=== PATIENT | female | born 1945 | race Caucasian/White ===

== ENCOUNTER 2016-12-18 09:27 | Emergency (ER) | payer OTHER ==
[2016-12-18 09:41] VITALS: BP 124/66; PULSE 77; RESP 20; TEMP 98; O2SAT 97
--- NOTE | 2016-12-18 10:25 | UCPHY ---
H & P Time Seen by Provider: 12/18/16 09:44 Patient Type: Established HPI/ROS: This patient sustained a laceration to her left 3rd finger from a table with leaves that pinched together causing the injury yesterday evening. She reports moderate pain and moderate bleeding. She placed a dressing on the at home after cleaning the wound and came in today for further evaluation. Today she reports mild pain to the affected area. ROS: No numbness or tingling. No difficulty moving the affected finger. No other injuries. No bony pain. 5 point ROS is otherwise negative. Past Medical/Surgical History: Immunizations are up to date Smoking Status: Never smoked Physical Exam: Physical Exam Vital signs are normal. General: Pleasant 71-year-old female No acute distress Lungs: No respiratory distress. Cardiac: Brisk capillary refill is intact throughout. Skin: No rash or pallor. The patient has a 1 cm full-thickness laceration to the distal phalanx of the left 3rd finger with no active bleeding. Subcutaneous tissues evident but no deeper structures are injured. There are no foreign bodies present on direct examination. Neuro: Alert and oriented x3 with no sensorimotor deficits. Constitutional: Initial Vital Signs Temperature (C) 36.6 C 12/18/16 09:39 Heart Rate 77 12/18/16 09:39 Respiratory Rate 20 12/18/16 09:39 Blood Pressure 124/66 H 12/18/16 09:39 O2 Sat (%) 97 12/18/16 09:39 O2 Delivery Mode Room Air Allergies/Adverse Reactions: strawberry [Lantry] Allergy (Severe, Verified 09/02/13 11:18) Anaphylaxis amoxicillin [Amoxicillin] Allergy (Intermediate, Verified 09/02/13 11:18) Hives naproxen sodium [From Aleve] Allergy (Intermediate, Verified 09/02/13 11:18) Hives Penicillins Allergy (Intermediate, Verified 09/02/13 11:18) Hives Home Medications: Medication Instructions Recorded Pregabalin [Lyrica] 100 mg PO 02/21/12 celeCOXIB [Celebrex (RX)] 200 mg PO 02/21/12 Ranitidine HCl [Zantac 75] BID 10/17/15 MDM/Departure - MDM Procedures: Digital block: After verbal consent and cleaning the base the finger with chlorhexidine under sterile conditions using a 27 gauge needle and a 50 50 mix of 0.5% Marcaine and 2% plain lidocaine I injected 8 mL with 3 injections with good effect. There were no complications. The wound is 1 cm. The wound was copiously irrigated with saline. The wound was explored for foreign bodies and none were found. The wound was prepped and draped in the normal sterile fashion. The edges were reapproximated using 4 0 Ethilon-3 running sutures with good hemostasis and cosmesis. The patient tolerated the procedure well. There were no complications. - Depart Disposition: Home, Routine, Self-Care Clinical Impression: Finger laceration Qualifiers: Encounter type: initial encounter Qualifier Code: (S61.219A) Laceration without foreign body of unspecified finger without damage to nail, initial encounter Instructions: Finger Laceration (ED) Additional Instructions: Diagnosis: Finger laceration Plan: Keep the wound clean and dry for the next 2 days. Then clean it with warm soapy water daily. Return for suture removal in 10-12 days Return sooner for redness discharge or other concerns for infection. Referrals: Terese Friend MD [Primary Care Provider] - As per Instructions - PQRS PQRS Measurement: 134: Depression screening and followup, PRIME MD-PHQ2 (12 years and older) Over the last 2 weeks, how often have you been bothered by any of the following problems? 1. Feeling down, depressed, or hopeless? 2. Little interest or pleasure in doing things? Patient answered no to both 1 and 2 130: Documentation of medications. Reviewed all patient medications, doses, route and frequency. 226: Do you smoke? No. 47: 65 and older: Advanced care planning. Patient designates surrogate decision maker as her partner, Delmy Wang 51: 18 years old and older with diagnosis of COPD, spirometry performance. NA 52: 18 years old and older with COPD and symptoms of COPD or FEV1<60% predicted prescribed a B Agonist. NA
== END 2016-12-18 10:38 | disposition home or self-care (01) ==
LOC: CED 09:27
PROC: 0HQGXZZ Repair Left Hand Skin, External Approach (ICD-10-PCS; principal; 2016-12-18)
DX: S61.213A Laceration without foreign body of left middle finger without damage to nail, initial encounter (principal); W23.1XXA Caught, crushed, jammed, or pinched between stationary objects, initial encounter; Z88.0 Allergy status to penicillin; Z88.1 Allergy status to other antibiotic agents
CPT/HCPCS: 12001; G0463; 99213-PO

== ENCOUNTER 2017-03-15 05:24 | Inpatient (IN) | payer OTHER ==
[2017-03-15] MEDS ORDERED: LIDOCAINE 1% 5 ML SDV ID PRN (06:04)
[2017-03-15] MEDS ORDERED: LR 1,000 ML IV ONE (06:04)
[2017-03-15] MEDS ORDERED: CEFAZOLIN 2 GM/DEXTROSE/100 ML BAG IV ONE (06:09)
[2017-03-15] MEDS ORDERED: LIDOCAINE 1% 2 ML INJ ONE (06:10)
[2017-03-15] MEDS ORDERED: THROMBIN (BOVINE) 5,000 UNIT VIAL TP ONE (06:50)
[2017-03-15] MEDS ORDERED: CALCIUM CHLORIDE 1 GM/10 ML INJ ONE (06:50)
[2017-03-15] MEDS ORDERED: ceFAZolin 1 GM/5 ML SYR ONE (06:51)
[2017-03-15] MEDS ORDERED: DEXAMETHASONE 4 MG/ML VIAL IVP ONE (07:00)
[2017-03-15] MEDS ORDERED: FAMOTIDINE 20 MG TAB PO ONE (07:00)
[2017-03-15] MEDS ORDERED: ROPI/epiNEPH/KETOROLAC JOINT COCKTAIL IU ONE (07:00)
[2017-03-15] MEDS ORDERED: ACETAMINOPHEN 325 MG TAB PO ONE (07:00)
[2017-03-15] MEDS ORDERED: CHLORHEXIDINE GLUC HIBICLENS 118 ML BTL TP ONE (07:00)
[2017-03-15] MEDS ORDERED: MIDAZOLAM 2 MG/2 ML VIAL ONE (07:07)
[2017-03-15] MEDS ORDERED: PROPOFOL/EMULSION 500 MG/50 ML BOTTLE IV ONE (07:12)
[2017-03-15] MEDS ORDERED: LIDOCAINE 2% 5 ML SDV ONE (07:14)
[2017-03-15] MEDS ORDERED: ceFAZolin 2 GM/DEXTROSE 100 ML IV ONE ×2 (07:30)
[2017-03-15] MEDS ORDERED: epHEDrine SULFATE 10 MG/ML SYR ONE (08:23)
[2017-03-15] MEDS ORDERED: ONDANSETRON 4 MG/2 ML VIAL ONE (09:13)
[2017-03-15] MEDS ORDERED: ROPIVACAINE HCL 150 MG/30 ML INJ ONE (09:18)
[2017-03-15] MEDS ORDERED: diphenhydrAMINE 25 MG CAP PO PRN (09:49)
[2017-03-15] MEDS ORDERED: ONDANSETRON 4 MG/2 ML VIAL IVP PRN (09:49)
[2017-03-15] MEDS ORDERED: DIPHENOXYLATE/ATROPINE LOMOTIL 1 TAB PO PRN (09:49)
[2017-03-15] MEDS ORDERED: METOCLOPRAMIDE 10 MG/2 ML VIAL IVP PRN (09:49)
[2017-03-15] MEDS ORDERED: MAGNESIUM HYDROXIDE 30 ML UDCUP PO PRN (09:49)
[2017-03-15] MEDS ORDERED: CYCLOBENZAPRINE 10 MG TAB PO PRN (09:49)
[2017-03-15] MEDS ORDERED: LACTULOSE 20 GM/30 ML UDCUP PO PRN (09:49)
[2017-03-15] MEDS ORDERED: PROMETHAZINE HCL 25 MG SUPPR PR PRN (09:49)
[2017-03-15] MEDS ORDERED: ONDANSETRON DISINTEGRATING 4 MG TAB PO PRN (09:49)
[2017-03-15] MEDS ORDERED: PHARMACY PAIN CONSULT 1 EA MISC PRN (09:49)
[2017-03-15] MEDS ORDERED: BISACODYL 10 MG SUPP PR PRN (09:49)
[2017-03-15] MEDS ORDERED: POLYETHYLENE GLYCOL 3350 17 GM PKT PO PRN (09:49)
[2017-03-15] MEDS ORDERED: FAMOTIDINE 20 MG TAB PO PRN (09:49)
--- NOTE | 2017-03-15 10:00 | POSTOPPROG ---
Post Op Note Date of Operation: 03/15/17 Surgeon: Lauren Singleton Data Center Engineer: Angela Moore PA-C Anesthesiologist: Dr. Kline Anesthesia: Spinal Pre-op Diagnosis: right knee osteoarthritis Post-op Diagnosis: right knee osteoarthritis Indication: right knee pain and arthritis Procedure: right TKA Inf/Abcess present in the surg proc area at time of surgery?: No EBL: Minimal Complications: none
--- NOTE | 2017-03-15 10:02 | SOAPPROG ---
SOAP Progress Note Assessment/Plan: Assessment/Plan: 72y/o female s/p right TKA - stable and doing well - orders as written - PT/OT, no knee flexion beyond 90 degrees - xrays pending - active care system for DVT prevention, ASA starts tomorrow - call with issues or concerns 03/15/17 10:00 Subjective: No pain, feeling well. Objective: NAD, well appearing, no distress VSS EOMi, face symmetric wiggles toes minimall bilaterally incision CDI ICD10 Worksheet Patient Problems: Problems Problem Status Onset Arthritis of knee Acute - ICD10 Problem Qualifiers (1) Arthritis of knee
[2017-03-15] MEDS: LR 1,000 ML IV SCH ×2 (11:20→20:28)
[2017-03-15] MEDS: PREGABALIN 50 MG CAP PO SCH ×2 (12:04→20:29)
[2017-03-15] MEDS: ACETAMINOPHEN 325 MG TAB PO SCH ×4 (12:05→23:50)
[2017-03-15] MEDS: oxyCODONE IR 5 MG TAB PO PRN ×3 (13:24→20:30)
[2017-03-15] MEDS: ceFAZolin 2 GM/DEXTROSE 100 ML IV SCH ×2 (13:24→21:30)
[2017-03-15] MEDS: FAMOTIDINE 20 MG TAB PO SCH (20:29)
[2017-03-15] MEDS: SENNOSIDES/DOCUSATE SODIUM TAB PO SCH (20:30)
[2017-03-15] MEDS ORDERED: NON-FORMULARY NEW DRUG (Ranitidine Hcl [Zantac 75] 75 MG) PO SCH (21:00)
[2017-03-16] MEDS: oxyCODONE IR 5 MG TAB PO PRN ×5 (03:29→20:29)
--- NOTE | 2017-03-16 05:19 | GOP ---
[f rep st] OPERATIVE REPORT DATE OF OPERATION: 03/15/2017 SURGEON: Lauren Singleton MD PRINT OPERATOR: TE Washburn. ANESTHESIA: Spinal with general. PREOPERATIVE DIAGNOSIS: Severe osteoarthritis, right knee. POSTOPERATIVE DIAGNOSIS: Severe osteoarthritis, right knee. PROCEDURE PERFORMED: Right total knee arthroplasty. FINDINGS: Preoperative x-rays of the patient's right knee demonstrated severe osteoarthritis most p ronounced in the medial and patellofemoral joints. At the time of surgery, these findings were conf irmed. The patient had complete loss of the articular cartilage in both the medial and patellofemor al joints. There was also moderate loss in the lateral compartment. A cemented posterior stabilize d Reynaga and Nephew Journey II total knee arthroplasty was performed. A size 4 femoral component was cemented into place on the femoral side. A size 4 tibial base plate was also used on the tibial si de. An 11 mm thick cross-linked polyethylene insert was placed in the metal backing of the tibia. A 38 mm round patellar component was cemented. Following implantation of the components, the knee w as taken through a range of motion and noted to be stable to full extension and 130 degrees of flexi on. Patient had good stability with varus and valgus stressing both in extension and flexion. The patella tracked well in the trochlear groove. ESTIMATED BLOOD LOSS: Minimal. DESCRIPTION OF PROCEDURE: The patient was taken to the operating room and placed in supine position on the operating table. Following induction of adequate spinal and general anesthesia, the right l eg was prepped and draped in the usual sterile manner. The patient received 2 g of IV Ancef. The l eg was elevated and exsanguinated and the tourniquet inflated to 275 mmHg. A midline incision was m melissa extending from 2 fingerbreadths superior to the superior pole of the patella distally to the tib ial tubercle. The DeMayo leg griffith was used throughout the procedure for positioning. The incisio n was carried down through the subcutaneous tissue to the retinaculum of the knee. A medial parapat ellar arthrotomy was then performed. The patella was everted laterally. The patellar thickness was measured and then, a 9 mm cut was taken from the patella. The metal protector plate was placed on the cut surface and the patella was placed in the lateral gutter. The knee was flexed up and then a distal femoral drill hole was placed in the distal femur. Intramedullary referencing was utilized for the distal femoral cut. The distal femoral cutting block was positioned and pinned and then, a +2 cut was taken from the distal femur. The femur was then sized. Size 4 component was chosen as t he best fit. The size 4 cutting block was positioned and pinned. Anterior-posterior and chamfer cu ts were made. The size 4 trial was placed on the distal end of the femur and impacted and an excell ent fit was noted. The notch was then cleared with the reamer followed by the box osteotome. The f emoral component was removed and the medial and lateral menisci were removed. A drill hole was plac ed in the proximal tibia in the area of the tibial spines for intramedullary referencing on the tibi al side as well. The tibial cutting block was positioned and aligned and then pinned. The tibial c ut was made. The tibia was sized and a size 4 tibial component was again the best fit. It was posi tioned and pinned and then a trial reduction was performed with the 9, 10 and 11 polyethylenes. The patella was prepared as well. It was drilled and a trial component was implanted. The patellar tra cking was checked and noted to be satisfactory. All the trial components were then removed and the cement was mixed. The tibial component was implanted 1st and then the femoral component and the pat ellar components were cemented into place. Pressure was held on the components while the cement artemio dened. Excess cement was removed from around the edges of the components. The trial polyethylene w as removed and a size 11 mm thick polyethylene was chosen as the best fit so this was implanted. Th e wound was thoroughly irrigated out and the posterior capsule was injected with joint cocktail. Th e extensor mechanism was also injected with joint cocktail. The knee was then injected with PRP as well to enhance wound healing. The retinaculum of the knee was closed using #2 FiberWire in a figur e-of-eight fashion. The subcutaneous tissues were closed using 2-0 Vicryl and the skin was closed u sing prem. Sterile dressings were applied. The patient tolerated the procedure well and there w ere no complications. Estimated blood loss minimal. Final sponge and needle counts were correct. T he patient was transported to the recovery room in good condition. /[id number]/MODL
[2017-03-16 05:29] LABS: HEMATOCRIT 24.7 % (38.0-47.0); HEMOGLOBIN 8.6 g/dL (12.6-16.3)
[2017-03-16] MEDS: ACETAMINOPHEN 325 MG TAB PO SCH ×4 (05:45→23:47)
[2017-03-16 05:52] LABS: ALANINE AMINOTRANSFERASE 27 IU/L (9-52); ALBUMIN 3.1 g/dL (3.5-5.0); ALKALINE PHOSPHATASE 56 IU/L (38-126); ANION GAP 7 mEq/L (8-16); ASPARTATE AMINOTRANSFERASE 26 IU/L (14-46); BILIRUBIN,TOTAL 0.5 mg/dL (0.1-1.4); CALCIUM 8.8 mg/dL (8.5-10.4); CARBON DIOXIDE 25 mEq/l (22-31); CHLORIDE 97 mEq/L (97-110); CREATININE 0.8 mg/dL (0.6-1.0); GLOMERULAR FILTRATION RATE > 60; GLUCOSE 89 mg/dL (70-100); POTASSIUM 4.3 mEq/L (3.5-5.2); SODIUM 129 mEq/L (134-144); TOTAL PROTEIN 5.4 g/dL (6.3-8.2)
[2017-03-16] MEDS: ASPIRIN 325 MG TAB PO SCH (07:55)
[2017-03-16] MEDS: PREGABALIN 50 MG CAP PO SCH ×2 (07:55→20:30)
[2017-03-16] MEDS: FERROUS SULFATE 140 MG TAB.ER PO SCH (07:55)
[2017-03-16] MEDS: FAMOTIDINE 20 MG TAB PO SCH ×2 (07:56→20:29)
[2017-03-16] MEDS: LR 1,000 ML IV SCH (08:44)
[2017-03-16] MEDS: SENNOSIDES/DOCUSATE SODIUM TAB PO SCH ×2 (08:55→20:31)
--- NOTE | 2017-03-16 13:23 | SOAPPROG ---
SOAP Progress Note Assessment/Plan: Assessment/Plan: 72y/o female day#1 s/p right TKA - two syncopal episodes after being up for prolonged periods of time; - H&H 8.6/24.7, on Iron, has hx of mild anemia. consider increasing Iron on outpatient basis - Na 129, was 131 on labs from February. Encouraged salty foods, decrease free water intake - have consulted internal medicine team for further evaluation and care - PT/OT, no knee flexion beyond 90 degrees - xrays show stable hardware without complication - active care system for DVT prevention, ASA starts today - call with issues or concerns - anticipate discharge tomorrow pending clinical course and internal medicine recommendations - patient seen by Dr. Singleton as well 03/16/17 13:19 03/16/17 13:23 Subjective: Pain well managed. Feeling better overall. Eating, drinking. Objective: Vital Signs Temp Pulse Resp BP Pulse Ox 36.6 C 68 16 128/65 H 96 03/16/17 12:24 03/16/17 12:24 03/16/17 12:24 03/16/17 12:24 03/16/17 12:24 Laboratory Results 03/16/17 04:35 03/16/17 04:35 03/15/17 03/16/17 03/17/17 05:59 05:59 05:59 Intake Total 3410 200 Output Total 2250 Balance 1160 200 NAD, well appearing, no distress EOMi, face symmetric MAEx4 right knee flexion to 80 degrees incision CDI, no erythema or active drainage; dressing changed without issue ICD10 Worksheet Patient Problems: Problems Problem Status Onset Arthritis of knee Acute - ICD10 Problem Qualifiers (1) Arthritis of knee
--- NOTE | 2017-03-16 14:01 | PDHOSCONS ---
Hospitalist Consult Hospitalist Consult: Requesting provider: Janki Moore Reason for consultation: Syncope History of presenting illness: 72 y/o female without any Cardiac risk factors postoperative day 1 right total knee arthroplasty who we have been asked to see due to syncope.She was using the restroom at 3 am today when she recalls feeling lightheaded upon raising up from the toilet. She sat back down and then apparently passed out and lost consciousness. this episode was proceeded with feeling sweaty and lightheaded. She denies any chest pain or syncope. She did not fall or hit her head, this is confirmed by her friend and nurse who was present during the episode. This morning at 10:00 a.m. she had a 2nd episode of syncope while working with physical therapy. on the 2nd episode she felt lightheaded but did not actually pass out. Once again she denies having any chest pain, shortness of breath, or palpitations. Postoperatively she was noted to have some hypotension. She Was told that her sodium was low on preoperative labs. She has been drinking a lot of water at home and attempt to avoid constipation. Past medical history 1. GERD 2. peripheral neuropathy 3. Cervical disc degeneration 4. osteoarthritis 5. hyponatremia 6. prior history of syncope after surgery Past surgical history: 1. bilateral knee surgery 2. left arm osteotomy Current medications: Reviewed in Copybar allergies: Amoxicillin, Naprosyn, penicillin social history: no alcohol tobacco or illicit drug use family history: reviewed noncontributory review of systems: 10 point review systems done is negative except for as mentioned in HPI physical exam: Selected Entries 03/15/17 03/15/17 03/15/17 09:48 09:52 09:54 Heart Rate Respiratory Rate O2 Sat (%) Temperature (C) Blood Pressure 97/55 L 78/35 L 90/48 L Mean Arterial Pressure (MAP) 03/15/17 03/16/17 09:57 12:24 Heart Rate 68 Respiratory 16 Rate O2 Sat (%) 96 Temperature (C) 36.6 C Blood Pressure 90/38 L 128/65 H Mean Arterial 86 Pressure (MAP) GENERAL: Well-appearing, no acute distress, nontoxic appearing HEENT: Head is normocephalic atraumatic, eyes are PERRLA, ears are normal appearing, mucous membranes are moist without lesions CARDIOVASCULAR: Regular rate and rhythm; normal S1 and S2 without murmurs, rubs , clicks, gallops; there is no JVD; there is no lower extremity edema ; no carotid bruit PULMONARY: Lungs are clear to auscultation bilaterally without wheezes, rales, rhonchi; respiratory effort is nonlabored without signs of acute respiratory distress. ABDOMINAL/GASTROINTESTINAL: Soft, nontender, nondistended with normoactive bowel sounds. There is no guarding or rebound tenderness. GENITOURINARY: No Sun in place EXTREMITIES: No clubbing, cyanosis, or edema; NEUROLOGIC: Cranial nerves 2-12 are grossly intact; face symmetric; moves all other extremities; speech is fluent; alert and oriented to person, place, and time SKIN: There are no rashes; I did not examine the patient for decubiti Diagnostics: Laboratory Tests 03/16/17 03/16/17 04:35 04:35 Hgb 8.6 L Hct 24.7 L Sodium 129 L Potassium 4.3 Chloride 97 BUN 12 Creatinine 0.8 AST 26 ALT 27 Alkaline Phosphatase 56 Total Protein 5.4 L Albumin 3.1 L Assessment/plan: This is a 72-year-old female postoperative day 1 right total knee arthroplasty I have been asked to see to evaluate due to: # syncope likely multifactorial in the setting of increased vagal tone from surgery and pain as well as hypovolemia / hypotension - EKG - monitor on telemetry - fall precautions # mild hyponatremia - fluid restrict to 1.5 L per day - Buffcap IVF since maintenance fluids can worsen 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 The hospital service will continue to follow along with you.
--- NOTE | 2017-03-16 15:11 | CPEKG ---
Heart Rate: 72 RR Interval: 833 P-R Interval: 180 QRSD Interval: 78 QT Interval: 380 QTC Interval: 416 P [place]: 39 QRS [place]: 45 T Wave [place]: 48 EKG Severity - NORMAL ECG - EKG Impression: SINUS RHYTHM Electronically Signed By: Papa Cuadra 18-Mar-2017 08:00:55
[2017-03-17 04:57] LABS: HEMATOCRIT 24.4 % (38.0-47.0); HEMOGLOBIN 8.4 g/dL (12.6-16.3)
[2017-03-17 05:17] LABS: ANION GAP 5 mEq/L (8-16); CALCIUM 8.8 mg/dL (8.5-10.4); CARBON DIOXIDE 26 mEq/l (22-31); CHLORIDE 104 mEq/L (97-110); CREATININE 0.8 mg/dL (0.6-1.0); GLOMERULAR FILTRATION RATE > 60; GLUCOSE 86 mg/dL (70-100); POTASSIUM 5.1 mEq/L (3.5-5.2); SODIUM 135 mEq/L (134-144)
[2017-03-17] MEDS: ACETAMINOPHEN 325 MG TAB PO SCH ×3 (05:26→18:26)
[2017-03-17] MEDS: oxyCODONE IR 5 MG TAB PO PRN ×6 (05:26→23:02)
--- NOTE | 2017-03-17 08:36 | HOSPPROG ---
Hospitalist Progress Note Assessment/Plan: Patient is a 72-year-old female who is status post a right total knee arthroplasty. The patient was ambulating to the bathroom when she felt lightheaded. She sat down and passed out and lost consciousness. This was preceded with feeling sweaty and lightheaded. Today is my 1st encounter with the patient. Chart reviewed. She has a prior history of syncope after surgery. * syncope, likely vasovagal Reviewed her 12 lead EKG which shows sinus rhythm Placed on fall precautions reviewed electronic device monitor /she has been in sinus * hyponatremia Resolved with fluid restriction *s/p TKA/POD #2 * anemia No significant drop, no indication for transfusion *Hypoalbuminemia and low protein levels *Plan: dc per ortho/ recommendations are for her not to bear down w activity ( causing her to pass out), work on exhaling, take vitamin C with iron for better absorption, take stool softener, f/u with PCP and get repeat labs. Subjective: Radha is feeling well/ no complaints. Objective: Vital Signs Temp Pulse Resp BP Pulse Ox 36.9 C 75 16 137/62 H 97 03/17/17 07:50 03/17/17 07:50 03/17/17 07:50 03/17/17 07:50 03/17/17 07:50 Laboratory Results 03/17/17 04:31 03/17/17 04:31 03/16/17 03/17/17 03/18/17 05:59 05:59 05:59 Intake Total 3410 1335 Output Total 2250 2900 Balance 1160 -1565 - Physical Exam Constitutional: no apparent distress, appears nourished, No not in pain (right knee) Eyes: PERRL Ears, Nose, Mouth, Throat: hearing normal Cardiovascular: regular rate and rhythym Respiratory: no respiratory distress Gastrointestinal: normoactive bowel sounds Skin: warm Musculoskeletal: muscular tenderness (right knee area) Neurologic: AAOx3 Psychiatric: interacting appropriately ICD10 Worksheet Patient Problems: Problems Problem Status Onset Arthritis of knee Acute
[2017-03-17] MEDS: PREGABALIN 50 MG CAP PO SCH ×2 (08:48→21:45)
[2017-03-17] MEDS: FAMOTIDINE 20 MG TAB PO SCH ×2 (08:49→21:45)
[2017-03-17] MEDS: FERROUS SULFATE 140 MG TAB.ER PO SCH (08:49)
[2017-03-17] MEDS: ASPIRIN 325 MG TAB PO SCH (08:49)
[2017-03-17] MEDS: SENNOSIDES/DOCUSATE SODIUM TAB PO SCH ×2 (08:49→21:45)
--- NOTE | 2017-03-17 13:42 | SOAPPROG ---
SOAP Progress Note Assessment/Plan: Assessment/Plan: 72y/o female day#2 s/p right TKA - had another syncopal episode this morning while working with PT - H&H stable, on Iron, has hx of mild anemia - Na 129 yesterday, 135 today. Currently fluid restricted - appreciate internal medicine team input and care; EKG within normal limits - has been progressing well with PT/OT, no knee flexion beyond 90 degrees - xrays show stable hardware without complication - active care system for DVT prevention, ASA - pain relatively well managed, attempt to wean Oxycodone to 5mg tomorrow if pain improved - due to recurrent vasovagal events, needs to continue inpatient with repeat labs in morning; patient is currently a fall risk - anticipate discharge tomorrow pending clinical course and internal medicine recommendations - patient discussed with Dr. Singleton 03/17/17 13:37 Subjective: Pain relatively well managed. Taking Oxycodone 10mg at a time. Eating, drinking , voiding, had BM this morning. Feeling ok now. Does get light headed and "cold sweats" prior to vasovagal events. Objective: Vital Signs Temp Pulse Resp BP Pulse Ox 36.5 C 78 16 109/62 93 03/17/17 11:15 03/17/17 11:15 03/17/17 11:15 03/17/17 11:15 03/17/17 11:15 Laboratory Results 03/17/17 04:31 03/17/17 04:31 03/16/17 03/17/17 03/18/17 05:59 05:59 05:59 Intake Total 3410 1335 Output Total 2250 2900 Balance 1160 -1565 NAD, well appearing, no distress EOMi, face symmetric MAEx4 right knee flexion 90, extension 5 dressing clean, minimal shadowing ICD10 Worksheet Patient Problems: Problems Problem Status Onset Arthritis of knee Acute - ICD10 Problem Qualifiers (1) Arthritis of knee
[2017-03-18] MEDS: oxyCODONE IR 5 MG TAB PO PRN ×8 (00:21→23:29)
[2017-03-18] MEDS: ACETAMINOPHEN 325 MG TAB PO SCH ×5 (00:22→23:29)
[2017-03-18 05:26] LABS: % IMMATURE GRANULYOCYTES 0.7 % (0.0-1.1); ABSOLUTE IMMATURE GRANULOCYTES 0.06 10^3/uL (0.00-0.10); ADD DIFF? NO; ADD MORPH? NO; ADD SCAN? NO; ATYPICAL LYMPHOCYTE FLAG 0 (0-99); FRAGMENT RBC FLAG 0 (0-99); HEMATOCRIT 22.9 % (38.0-47.0); LEFT SHIFT FLG 10 (0-99); LIPEMIA HEMOLYSIS FLAG 90 (0-99); MEAN CELL HEMOGLOBIN 33.1 pg (27.9-34.1); MEAN CELL HEMOGLOBIN CONCENTR. 34.9 g/dL (32.4-36.7); MEAN CELL VOLUME 94.6 fL (81.5-99.8); MEAN PLATELET VOLUME 8.9 fL (8.7-11.7); PLATELET CLUMPS FLAG 0 (0-99); PLATELET COUNT 266 10^3/uL (150-400); RED BLOOD CELL COUNT 2.42 10^6/uL (4.18-5.33); RED CELL DISTRIBUTION WIDTH 12.7 % (11.5-15.2)
[2017-03-18 05:34] LABS: ANION GAP 3 mEq/L (8-16); CALCIUM 8.7 mg/dL (8.5-10.4); CARBON DIOXIDE 25 mEq/l (22-31); CHLORIDE 102 mEq/L (97-110); CREATININE 0.6 mg/dL (0.6-1.0); GLOMERULAR FILTRATION RATE > 60; GLUCOSE 102 mg/dL (70-100); POTASSIUM 4.3 mEq/L (3.5-5.2); SODIUM 130 mEq/L (134-144)
[2017-03-18] MEDS: FERROUS SULFATE 140 MG TAB.ER PO SCH (08:02)
[2017-03-18] MEDS: ASPIRIN 325 MG TAB PO SCH (08:02)
[2017-03-18] MEDS: FAMOTIDINE 20 MG TAB PO SCH ×2 (08:02→20:34)
[2017-03-18] MEDS: PREGABALIN 50 MG CAP PO SCH ×2 (08:02→20:33)
[2017-03-18] MEDS: SENNOSIDES/DOCUSATE SODIUM TAB PO SCH ×2 (08:02→20:34)
--- NOTE | 2017-03-18 10:40 | HOSPPROG ---
Hospitalist Progress Note Assessment/Plan: Patient is a 72-year-old female who is status post a right total knee arthroplasty. The patient was ambulating to the bathroom when she felt lightheaded. She sat down and passed out and lost consciousness. This was preceded with feeling sweaty and lightheaded. * syncope, likely vasovagal Reviewed her 12 lead EKG which shows sinus rhythm Placed on fall precautions reviewed web marketing strategist /she has been in sinus she had a almost pre-syncopal episode this morning recommended she go to rehab for a week ors * hyponatremia Na 130/cont fluid restrictions increase solute *s/p TKA/POD #3 * anemia decreased *Hypoalbuminemia and low protein levels *Plan: recommending a SNF for a week for safety/ would get her labs checked in a few days, cbc, chemistry Subjective: Radha felt like she was going to pass out this morning. Objective: Vital Signs Temp Pulse Resp BP Pulse Ox 36.7 C 80 16 157/75 H 93 03/18/17 07:55 03/18/17 07:55 03/18/17 07:55 03/18/17 07:55 03/18/17 07:55 Laboratory Results 03/18/17 04:42 03/18/17 04:42 03/17/17 03/18/17 03/19/17 05:59 05:59 05:59 Intake Total 1335 1000 Output Total 2900 550 Balance -1565 450 - Physical Exam Constitutional: no apparent distress, appears nourished, not in pain Eyes: PERRL Ears, Nose, Mouth, Throat: hearing normal Cardiovascular: regular rate and rhythym, no murmur, rub, or gallop Respiratory: no respiratory distress Gastrointestinal: normoactive bowel sounds Skin: warm Musculoskeletal: other (right knee with recent surgery) Neurologic: AAOx3 Psychiatric: interacting appropriately, not anxious ICD10 Worksheet Patient Problems: Problems Problem Status Onset Arthritis of knee Acute
--- NOTE | 2017-03-18 11:49 | SOAPPROG ---
SOAP Progress Note Assessment/Plan: Assessment/Plan: 72y/o female day#3 s/p right TKA - felt light headed again this morning - H&H slight decrease, on Iron, has hx of mild anemia; continue to monitor - Na 130 today. Currently fluid restricted, continue - appreciate internal medicine team input and care; EKG within normal limits - needs SNF with repeat labs in a couple days and further monitoring - has been progressing well with PT/OT, no knee flexion beyond 90 degrees - xrays show stable hardware without complication - active care system for DVT prevention, ASA - pain relatively well managed, taking Oxycodone 5mg during the day, 10mg at night - due to recurrent vasovagal events, anemia, hyponatremia patient requires SNF - appreciate internal medicine's input and care - patient discussed with Dr. Singleton 03/18/17 11:47 Subjective: Pain minimal without movement, increases with movement. Feels ok on Oxycodone 5mg. [place] light headed this morning Objective: Vital Signs Temp Pulse Resp BP Pulse Ox 36.8 C 80 18 124/61 H 97 03/18/17 11:14 03/18/17 11:14 03/18/17 11:14 03/18/17 11:14 03/18/17 11:14 Laboratory Results 03/18/17 04:42 03/18/17 04:42 03/17/17 03/18/17 03/19/17 05:59 05:59 05:59 Intake Total 1335 1000 Output Total 2900 550 Balance -1565 450 NAD, no distress EOMi, face symmetric MAEx4 right knee extension 5, flexion 85 dressing with minimal shadowing ICD10 Worksheet Patient Problems: Problems Problem Status Onset Arthritis of knee Acute - ICD10 Problem Qualifiers (1) Arthritis of knee
--- NOTE | 2017-03-18 11:55 | PDIAF ---
- Diagnosis Diagnosis: right knee arthritis, hyponatremia, vasovagal events, anemia Code Status: Full Code - Medication Management Discharge Medications: Medications to Continue on Transfer celeCOXIB [Celebrex (*)] 200 mg PO DAILY 02/21/12 [Last Taken 02/26/17] Ranitidine HCl [Zantac 75] 75 mg PO BID 10/17/15 [Last Taken 03/15/17 03:30] Beta-Carotene(A) W-C & E/Min [Ocuvite] 1 tab PO DAILY 02/22/17 [Last Taken 03/08] Cholecalciferol Vit D3 [Vitamin D3 2000 units tab (OTC)] 2,000 units PO DAILY [Last Taken 03/08/17] Herbals/Supplements -Info Only 1 ea PO DAILY 02/22/17 [Last Taken 03/08/17] Multivitamins [Multivitamin (*)] 1 each PO DAILY 02/22/17 [Last Taken 03/08/17] Pregabalin [Lyrica 50mg (*)] 50 mg PO DAILY 02/22/17 [Last Taken 03/15/17] Pregabalin [Lyrica 50mg (*)] 100 mg PO HS 02/22/17 [Last Taken 03/14/17] Acetaminophen [Tylenol 325mg (*)] 650 mg PO Q6HRS #0 tab 03/18/17 [Last Taken Unknown] Aspirin [Aspirin 325 mg (*)] 325 mg PO DAILY #0 tab 03/18/17 [Last Taken Unknown ] Ferrous Sulfate [Slow Fe 140 MG (*)] 140 mg PO DAILY #0 tab.er 03/18/17 [Last Taken Unknown] Ondansetron Odt [Zofran Odt 4 mg (*)] 4 mg PO Q4HRS PRN #0 tab 03/18/17 [Last Taken Unknown] Polyethylene Glycol 3350 [Miralax 17 gm (*)] 17 gm PO DAILY PRN #0 pkt 03/18/17 [Last Taken Unknown] Sennosides/Docusate Sodium [Senokot-S] 1 - 2 tab PO BID #0 tab 03/18/17 [Last Taken Unknown] oxyCODONE IR [Oxycodone Ir (*)] 5 - 10 mg PO Q3HRS PRN #0 tab 03/18/17 [Last Taken Unknown] Discharge Medications: Refer to the Discharge Home Medication list for PRN reason. PICC Care - Routine: N/A - Orders Services needed: Registered Nurse, Certified Forklift Picker, Physical Therapy, Occupational Therapy Diet Recommendation: no restrictions on diet, fluid restriction (use comment for amount) (1.5 L) Diet Texture: Regular Texture Diet Herrera Stockings Discontinue Date: continue Active Care System post-operatively Wound Care Instructions: keep incision clean and dry Sutures/Osmani Site: will remove at patient's post-operative visit Activity/Weight Bearing Restrictions: weight bearing as tolerated with walker. no knee flexion beyond 90 degrees Equipment: walker - Labs/Radiology BMP Date: 03/20/17 HCT/HGB Date: 03/20/17 - Follow Up Care Current Providers and Referrals: Terese Friend MD [Primary Care Provider] -
[2017-03-19] MEDS: ACETAMINOPHEN 325 MG TAB PO SCH ×2 (05:14→12:41)
[2017-03-19] MEDS: oxyCODONE IR 5 MG TAB PO PRN ×4 (05:14→13:46)
[2017-03-19] MEDS: ASPIRIN 325 MG TAB PO SCH (09:46)
[2017-03-19] MEDS: FAMOTIDINE 20 MG TAB PO SCH (09:46)
[2017-03-19] MEDS: SENNOSIDES/DOCUSATE SODIUM TAB PO SCH (09:46)
[2017-03-19] MEDS: FERROUS SULFATE 140 MG TAB.ER PO SCH (09:46)
[2017-03-19] MEDS: PREGABALIN 50 MG CAP PO SCH (09:47)
[2017-03-19 11:39] VITALS: BP 123/78; PULSE 87; RESP 16; TEMP 98.4; O2SAT 95
--- NOTE | 2017-03-19 12:10 | HOSPPROG ---
Hospitalist Progress Note Assessment/Plan: Patient is a 72-year-old female who is status post a right total knee arthroplasty. The patient was ambulating to the bathroom when she felt lightheaded. She sat down and passed out and lost consciousness. This was preceded with feeling sweaty and lightheaded. * syncope, likely vasovagal Reviewed her 12 lead EKG which shows sinus rhythm Placed on fall precautions reviewed engineering tech /she has been in sinus she has had none further * hyponatremia resollved *s/p TKA/POD #4 * anemia stable *Hypoalbuminemia and low protein levels *Plan: ok to go home with homecare Subjective: Radha has had no further vasovagal episodes. Objective: Vital Signs Temp Pulse Resp BP Pulse Ox 36.9 C 87 16 123/78 H 95 03/19/17 11:37 03/19/17 11:37 03/19/17 11:37 03/19/17 11:37 03/19/17 11:37 Laboratory Results 03/18/17 04:42 03/18/17 04:42 03/18/17 03/19/17 03/20/17 05:59 05:59 05:59 Intake Total 1000 100 Output Total 550 Balance 450 100 - Physical Exam Constitutional: no apparent distress, appears nourished, not in pain Eyes: anicteric sclera Ears, Nose, Mouth, Throat: hearing normal Cardiovascular: regular rate and rhythym Respiratory: no respiratory distress Skin: warm Musculoskeletal: generalized weakness Neurologic: AAOx3 Psychiatric: interacting appropriately, not anxious ICD10 Worksheet Patient Problems: Problems Problem Status Onset Arthritis of knee Acute
--- NOTE | 2017-03-19 12:14 | SOAPPROG ---
SOAP Progress Note Assessment/Plan: Assessment/Plan: 72y/o female day#4 s/p right TKA - feeling somewhat better, no recent vasovagal events - SNF care declined - stat H&H and BMP pending, if ok will plan for home with home care - appreciate internal medicine team input and care; EKG within normal limits - has been progressing well with PT/OT, no knee flexion beyond 90 degrees - xrays show stable hardware without complication - active care system for DVT prevention, ASA - pain relatively well managed, taking Oxycodone 5mg during the day, 10mg at night; will start Celebrex on discharge, discussed risks and benefits of going back on this medication, however, I do feel a component of her dizziness is secondary to Oxycodone and prefer to wean off this medication if tolerated and I feel Celebrex will help allow us to do so - appreciate internal medicine's input and care - will await labs, patient will need home care and close PCP follow-up at the least 03/19/17 12:10 Subjective: Having pain with walking, movement. Feels ok overall today, frustrated about SNF denial. Objective: Vital Signs Temp Pulse Resp BP Pulse Ox 36.9 C 87 16 123/78 H 95 03/19/17 11:37 03/19/17 11:37 03/19/17 11:37 03/19/17 11:37 03/19/17 11:37 Laboratory Results 03/18/17 04:42 03/18/17 04:42 03/18/17 03/19/17 03/20/17 05:59 05:59 05:59 Intake Total 1000 100 Output Total 550 Balance 450 100 NAD, well appearing, no distress EOMi, face symmetric MAEx4 right knee extension 5, flexion 80 dressing with mild shadowing ICD10 Worksheet Patient Problems: Problems Problem Status Onset Arthritis of knee Acute - ICD10 Problem Qualifiers (1) Arthritis of knee
[2017-03-19 12:19] LABS: HEMATOCRIT 25.6 % (38.0-47.0); HEMOGLOBIN 8.8 g/dL (12.6-16.3)
[2017-03-19 12:49] LABS: ANION GAP 7 mEq/L (8-16); CALCIUM 9.1 mg/dL (8.5-10.4); CARBON DIOXIDE 26 mEq/l (22-31); CHLORIDE 101 mEq/L (97-110); CREATININE 0.6 mg/dL (0.6-1.0); GLOMERULAR FILTRATION RATE > 60; GLUCOSE 98 mg/dL (70-100); POTASSIUM 4.5 mEq/L (3.5-5.2); SODIUM 134 mEq/L (134-144)
--- NOTE | 2017-03-19 13:03 | PDIAF ---
- Diagnosis Diagnosis: right knee arthritis, hyponatremia, vasovagal events, anemia Code Status: Full Code - Medication Management Discharge Medications: Medications to Continue on Transfer celeCOXIB [Celebrex (*)] 200 mg PO DAILY 02/21/12 [Last Taken 02/26/17] Ranitidine HCl [Zantac 75] 75 mg PO BID 10/17/15 [Last Taken 03/15/17 03:30] Beta-Carotene(A) W-C & E/Min [Ocuvite] 1 tab PO DAILY 02/22/17 [Last Taken 03/08] Cholecalciferol Vit D3 [Vitamin D3 2000 units tab (OTC)] 2,000 units PO DAILY [Last Taken 03/08/17] Herbals/Supplements -Info Only 1 ea PO DAILY 02/22/17 [Last Taken 03/08/17] Multivitamins [Multivitamin (*)] 1 each PO DAILY 02/22/17 [Last Taken 03/08/17] Pregabalin [Lyrica 50mg (*)] 50 mg PO DAILY 02/22/17 [Last Taken 03/15/17] Pregabalin [Lyrica 50mg (*)] 100 mg PO HS 02/22/17 [Last Taken 03/14/17] Acetaminophen [Tylenol 325mg (*)] 650 mg PO Q6HRS #0 tab 03/18/17 [Last Taken Unknown] Aspirin [Aspirin 325 mg (*)] 325 mg PO DAILY #0 tab 03/18/17 [Last Taken Unknown ] Ferrous Sulfate [Slow Fe 140 MG (*)] 140 mg PO DAILY #0 tab.er 03/18/17 [Last Taken Unknown] Ondansetron Odt [Zofran Odt 4 mg (*)] 4 mg PO Q4HRS PRN #0 tab 03/18/17 [Last Taken Unknown] Polyethylene Glycol 3350 [Miralax 17 gm (*)] 17 gm PO DAILY PRN #0 pkt 03/18/17 [Last Taken Unknown] Sennosides/Docusate Sodium [Senokot-S] 1 - 2 tab PO BID #0 tab 03/18/17 [Last Taken Unknown] oxyCODONE IR [Oxycodone Ir (*)] 5 - 10 mg PO Q3HRS PRN #0 tab 03/18/17 [Last Taken Unknown] Discharge Medications: Refer to the Discharge Home Medication list for PRN reason. PICC Care - Routine: N/A - Orders Services needed: Home Care, Registered Nurse, Certified Reuse Technician, Physical Therapy, Occupational Therapy Home Care Face to Face: I certify that this patient was under my care and that I had the required daci-uh-thlb encounter meeting the encounter requirements on the discharge day. My findings support the fact that the patient is homebound as defined in CMS Chapter 7 Medicare Benefits Manual 30.1.1, The condition of the patient is such that there exists a normal inability to leave home and consequently, leaving home would require a considerable and taxing effort. Diet Recommendation: no restrictions on diet, fluid restriction (use comment for amount) Diet Texture: Regular Texture Diet Herrera Stockings Discontinue Date: continue Active Care System post-operatively Wound Care Instructions: keep incision clean and dry Sutures/Osmani Site: will remove at patient's post-operative visit Activity/Weight Bearing Restrictions: weight bearing as tolerated with walker. no knee flexion beyond 90 degrees Equipment: walker - Labs/Radiology BMP Date: 03/22/17 HCT/HGB Date: 03/22/17 - Follow Up Care Current Providers and Referrals: Terese Friend MD [Primary Care Provider] -
== END 2017-03-19 14:49 | disposition home health service (06) | DRG 470 ==
LOC: F3N 05:24
PROVIDERS: ADMIT Orthopaedic Surgery; ATTEND Orthopaedic Surgery
PROC: 0SRC0J9 Replacement of Right Knee Joint with Synthetic Substitute, Cemented, Open Approach (ICD-10-PCS; principal; 2017-03-15 07:15)
DX: M17.11 Unilateral primary osteoarthritis, right knee (principal); R55 Syncope and collapse; E87.1 Hypo-osmolality and hyponatremia; G62.9 Polyneuropathy, unspecified; K21.9 Gastro-esophageal reflux disease without esophagitis
CPT/HCPCS: 97110-GP; 97116-GP; 97161-GP; 97165-GO; 97530-GP; C1713; G8978-GP-CJ; G8979-GP-CI; G8980-GP-CI; G8987-GO-CI; G8988-GO-CI; G8989-GO-CI; J0171; J0690; J1100; J1885; J2250; J2405; J2704; J2795

== ENCOUNTER 2017-04-02 17:38 | Emergency (ER) | payer OTHER ==
--- NOTE | 2017-04-02 17:53 | CPEKG ---
Heart Rate: 81 RR Interval: 741 P-R Interval: 168 QRSD Interval: 82 QT Interval: 376 QTC Interval: 437 P [place]: 11 QRS [place]: 20 T Wave [place]: 43 EKG Severity - NORMAL ECG - EKG Impression: SINUS RHYTHM Electronically Signed By: Betty Damon 09-Apr-2017 13:31:22
--- NOTE | 2017-04-02 17:55 | EDPHY ---
H & P Time Seen by Provider: 04/02/17 17:41 HPI/ROS: 72-year-old female presents complaining of low potassium measured yesterday by home health, she has also recently noted increased palpitations. She denies chest pain she denies shortness of breath. She had a total knee replacement on March 15 and is currently on Xarelto for DVT that she developed after surgery Review of systems As per HPI General no fever no chills no weakness HEENT no eye pain no eye discharge. No eye redness, no sore throat Respiratory no cough, no shortness of breath Cardiac no chest pain, no peripheral edema, positive palpitations GI no abdominal pain, no diarrhea, no constipation, no nausea, no vomiting no flank pain, no hematuria, no dysuria Musculoskeletal no myalgias, positive joint pain Heme no easy bruising, no easy bleeding Endo no polyuria, no polydipsia Skin no rashes, no pruritus Neuro no syncope, no dizziness, no headaches Psych is no suicidal ideation, no homicidal ideation Source: Patient Exam Limitations: No limitations - Personal History Current Tetanus/Diphtheria Vaccine: Yes Tetanus Vaccine Date: < 10 years - Medical/Surgical History Hx Asthma: No Hx Chronic Respiratory Disease: No Hx Diabetes: No Hx Cardiac Disease: No Hx Renal Disease: No Hx Cirrhosis: No Hx Alcoholism: Yes Hx HIV/AIDS: No Hx Splenectomy or Spleen Trauma: No Other PMH: GERD, COLON POLYPS, BILAT KNEE SURGERY, LEFT ARM SURGERY, - Family History Significant Family History: No pertinent family hx - Social History Smoking Status: Never smoked Alcohol Use: None Drug Use: None - Physical Exam Exam: 70-year-old female alert and oriented in no acute distress nontoxic appearance, afebrile, no respiratory distress Atraumatic normocephalic Neck supple Lungs clear to auscultation bilaterally Heart regular rate and rhythm without murmur rub or gallop, no irregularity noted Abdomen nondistended NABS soft Extremity Right knee swelling consistent with recent surgery Neuro alert and oriented , normal speech, no focal sensory or motor deficit Constitutional: Initial Vital Signs Temperature (C) 37.1 C 04/02/17 17:58 Heart Rate 85 04/02/17 17:58 Respiratory Rate 18 04/02/17 17:58 Blood Pressure 156/78 H 04/02/17 17:58 O2 Sat (%) 95 04/02/17 17:58 O2 Delivery Mode Room Air Allergies/Adverse Reactions: strawberry [[place]] Allergy (Severe, Verified 09/02/13 11:18) Anaphylaxis amoxicillin [Amoxicillin] Allergy (Intermediate, Verified 09/02/13 11:18) Hives naproxen sodium [From Aleve] Allergy (Intermediate, Verified 09/02/13 11:18) Hives Penicillins Allergy (Intermediate, Verified 09/02/13 11:18) Hives Home Medications: Medication Instructions Recorded celeCOXIB [Celebrex (*)] 200 mg PO DAILY 02/21/12 Ranitidine HCl [Zantac 75] 75 mg PO BID 10/17/15 Beta-Carotene(A) W-C & E/Min 1 tab PO DAILY 02/22/17 [Ocuvite] Cholecalciferol Vit D3 [Vitamin D3 2,000 units PO DAILY 02/22/17 2000 units tab (OTC)] Multivitamins [Multivitamin (*)] 1 each PO DAILY 02/22/17 Pregabalin [Lyrica 50mg (*)] 50 mg PO DAILY 02/22/17 Pregabalin [Lyrica 50mg (*)] 100 mg PO HS 02/22/17 Acetaminophen [Tylenol 325mg (*)] 650 mg PO Q6HRS #0 tab 03/18/17 Ferrous Sulfate [Slow Fe 140 MG 140 mg PO DAILY #0 tab.er 03/18/17 (*)] Polyethylene Glycol 3350 [Miralax 17 gm PO DAILY PRN #0 pkt 03/18/17 17 gm (*)] Sennosides/Docusate Sodium 1 - 2 tab PO BID #0 tab 03/18/17 [Senokot-S] oxyCODONE IR [Oxycodone Ir (*)] 5 - 10 mg PO Q3HRS PRN #0 tab 03/18/17 Potassium Chloride 10 meq PO BID #28 tab.prt.sr 04/02/17 Sucralfate 04/02/17 Xarelto 04/02/17 Medical Decision Making ED Course/Re-evaluation: Medical decision making and ER course Patient seen and evaluated for low potassium, palpitations Potassium repeated and is 3.0 today EKG normal sinus rhythm no evidence of ectopy Patient given IV potassium 20 mEq over 2 hours Patient also given 40 mEq p.o. Potassium repeated-3.9 Additionally looked at magnesium and TSH in terms given history of palpitations both within normal limits Impression Hypokalemia Plan Potassium 10 mEq p. o. twice daily x2 weeks Follow up with primary care physician on Wednesday - Data Points Laboratory Results: Laboratory Results 04/02/17 16:55 04/02/17 21:30 04/02/17 04/02/17 04/02/17 21:30 16:55 16:55 WBC 7.63 10^3/uL 10^3/uL (3.80-9.50) RBC 2.80 10^6/uL L 10^6/uL (4.18-5.33) Hgb 9.0 g/dL L g/dL (12.6-16.3) Hct 26.1 % L % (38.0-47.0) MCV 93.2 fL fL (81.5-99.8) MCH 32.1 pg pg (27.9-34.1) MCHC 34.5 g/dL g/dL (32.4-36.7) RDW 12.9 % % (11.5-15.2) Plt Count 553 10^3/uL H 10^3/uL (150-400) MPV 8.6 fL L fL (8.7-11.7) Neut % (Auto) 59.0 % % (39.3-74.2) Lymph % (Auto) 23.6 % % (15.0-45.0) [place] % (Auto) 11.8 % % (4.5-13.0) Eos % (Auto) 4.7 % % (0.6-7.6) Baso % (Auto) 0.5 % % (0.3-1.7) Nucleat RBC Rel Count 0.0 % % (0.0-0.2) Absolute Neuts (auto) 4.50 10^3/uL 10^3/uL (1.70-6.50) Absolute Lymphs (auto) 1.80 10^3/uL 10^3/uL (1.00-3.00) Absolute Monos (auto) 0.90 10^3/uL H 10^3/uL (0.30-0.80) Absolute Eos (auto) 0.36 10^3/uL 10^3/uL (0.03-0.40) Absolute Basos (auto) 0.04 10^3/uL 10^3/uL (0.02-0.10) Absolute Nucleated RBC 0.00 10^3/uL 10^3/uL (0-0.01) Immature Gran % 0.4 % % (0.0-1.1) Immature Gran # 0.03 10^3/uL 10^3/uL (0.00-0.10) Sodium Potassium 3.9 mEq/L mEq/L (3.5-5.2) Chloride Carbon Dioxide Anion Gap BUN Creatinine Estimated GFR Glucose Calcium Magnesium 1.6 mg/dL mg/dL (1.6-2.3) TSH 0.749 uIU/mL uIU/mL (0.465-4.680) 04/02/17 16:55 WBC RBC Hgb Hct MCV MCH MCHC RDW Plt Count MPV Neut % (Auto) Lymph % (Auto) [place] % (Auto) Eos % (Auto) Baso % (Auto) Nucleat RBC Rel Count Absolute Neuts (auto) Absolute Lymphs (auto) Absolute Monos (auto) Absolute Eos (auto) Absolute Basos (auto) Absolute Nucleated RBC Immature Gran % Immature Gran # Sodium 135 mEq/L mEq/L (134-144) Potassium 3.0 mEq/L L mEq/L (3.5-5.2) Chloride 99 mEq/L mEq/L (97-110) Carbon Dioxide 23 mEq/l mEq/l (22-31) Anion Gap 13 mEq/L mEq/L (8-16) BUN 12 mg/dL mg/dL (7-23) Creatinine 0.7 mg/dL mg/dL (0.6-1.0) Estimated GFR > 60 Glucose 124 mg/dL H mg/dL (70-100) Calcium 9.1 mg/dL mg/dL (8.5-10.4) Magnesium TSH Medications Given: Discontinued Medications Potassium Chloride (Potassium Cl 20 Meq (Premix)) 100 mls @ 50 mls/hr IV EDNOW ONE Stop: 04/02/17 20:23 Last Admin: 04/02/17 18:58 Dose: 100 mls Sodium Chloride (Ns) 1,000 mls @ 0 mls/hr IV ONCE ONE PRN Reason: Wide Open Stop: 04/02/17 20:49 Last Admin: 04/02/17 18:32 Dose: 1,000 mls Potassium Chloride (Klor Packets) 40 meq PO EDNOW ONE Stop: 04/02/17 18:24 Last Admin: 04/02/17 18:43 Dose: 40 meq Departure - Departure Disposition: Home, Routine, Self-Care Clinical Impression: Low serum potassium, Palpitations Condition: Good Instructions: Palpitations (ED), Potassium Content of Foods List (ED), Hypokalemia (ED) Additional Instructions: Keep appointment with your primary care physician early next week. Referrals: Terese Friend MD [Primary Care Provider] - As per Instructions Prescriptions: Potassium Chloride 10 meq PO BID #28 tab.prt.sr
[2017-04-02 18:18] LABS: ANION GAP 13 mEq/L (8-16); CALCIUM 9.1 mg/dL (8.5-10.4); CARBON DIOXIDE 23 mEq/l (22-31); CHLORIDE 99 mEq/L (97-110); CREATININE 0.7 mg/dL (0.6-1.0); GLOMERULAR FILTRATION RATE > 60; GLUCOSE 124 mg/dL (70-100); SODIUM 135 mEq/L (134-144)
[2017-04-02] MEDS ORDERED: POTASSIUM CL 20 MEQ PKT PO ONE (18:23)
[2017-04-02] MEDS ORDERED: POTASSIUM Cl (KCl) 100 ML IV ONE (18:24)
[2017-04-02 18:26] LABS: % IMMATURE GRANULYOCYTES 0.4 % (0.0-1.1); ABSOLUTE IMMATURE GRANULOCYTES 0.03 10^3/uL (0.00-0.10); ADD DIFF? NO; ADD MORPH? NO; ADD SCAN? NO; ATYPICAL LYMPHOCYTE FLAG 40 (0-99); FRAGMENT RBC FLAG 0 (0-99); HEMATOCRIT 26.1 % (38.0-47.0); LEFT SHIFT FLG 0 (0-99); LIPEMIA HEMOLYSIS FLAG 90 (0-99); MEAN CELL HEMOGLOBIN 32.1 pg (27.9-34.1); MEAN CELL HEMOGLOBIN CONCENTR. 34.5 g/dL (32.4-36.7); MEAN CELL VOLUME 93.2 fL (81.5-99.8); MEAN PLATELET VOLUME 8.6 fL (8.7-11.7); PLATELET CLUMPS FLAG 0 (0-99); PLATELET COUNT 553 10^3/uL (150-400); RED CELL DISTRIBUTION WIDTH 12.9 % (11.5-15.2)
[2017-04-02 18:32] LABS: MAGNESIUM 1.6 mg/dL (1.6-2.3)
[2017-04-02] MEDS ORDERED: POTASSIUM Cl (KCl) 10 MEQ/100 ML BAG IV ONE (18:32)
[2017-04-02] MEDS ORDERED: POTASSIUM CL 20 MEQ PKT ONE (18:37)
[2017-04-02 19:13] VITALS: TEMP 99.1
[2017-04-02] MEDS ORDERED: NS 1,000 ML IV ONE (20:48)
[2017-04-02 20:59] VITALS: RESP 20; O2SAT 94
[2017-04-02 21:35] VITALS: BP 153/84; PULSE 86
== END 2017-04-02 21:57 | disposition home or self-care (01) ==
LOC: CED 17:38
DX: E87.6 Hypokalemia (principal); Z79.01 Long term (current) use of anticoagulants
CPT/HCPCS: 80048-PO; 83735-PO; 84132-PO; 84443-PO; 85025-PO; 96365; 96366

== ENCOUNTER → 2017-05-06 | Outpatient (CLI) | payer OTHER | LOC: FIMAGING 18:33 | PROVIDERS: ATTEND Internal Medicine | DX: M51.36 Other intervertebral disc degeneration, lumbar region (principal); M46.96 Unspecified inflammatory spondylopathy, lumbar region; K57.30 Diverticulosis of large intestine without perforation or abscess without bleeding | CPT/HCPCS: 80048-PO; 85025-PO ==

== ENCOUNTER 2017-05-07 13:53 | Day surgery (SDC) | payer OTHER ==
[2017-05-07] MEDS ORDERED: TRIAMCINOLONE ACETONIDE 200 MG/5 ML MDV IM ONE (14:57)
[2017-05-07] MEDS ORDERED: LIDOCAINE 1% 300 MG/30 ML SDV ONE (14:57)
[2017-05-07] MEDS ORDERED: IOPAMIDOL (ISOVUE-M 300) 15 ML VIAL ONE (15:04)
[2017-05-07] MEDS ORDERED: DEPO METHYLPREDNISOLONE 40 MG/ML SDV ONE (15:42)
== END 2017-05-07 16:40 | disposition home or self-care (01) ==
LOC: FIMAGING 13:53
PROVIDERS: ATTEND Internal Medicine
PROC: 3E0S3BZ Introduction of Anesthetic Agent into Epidural Space, Percutaneous Approach (ICD-10-PCS; principal; 2017-05-07)
PROC: 3E0S329 Introduction of Other Anti-infective into Epidural Space, Percutaneous Approach (ICD-10-PCS; principal; 2017-05-07)
DX: M54.5 Low back pain (principal)
CPT/HCPCS: J1030; J3301; Q9967

== ENCOUNTER → 2017-09-06 | Outpatient (CLI) | payer OTHER | LOC: CIMAGING 11:15 | PROVIDERS: ATTEND Psychiatry & Neurology Neurology | DX: R25.1 Tremor, unspecified (principal) | CPT/HCPCS: 70450-PO ==

== ENCOUNTER → 2017-09-08 | Outpatient (CLI) | payer OTHER ==
--- NOTE | 2017-09-09 17:14 | CPEEG ---
[f rep st] ELECTROENCEPHALOGRAM EEG DATE OF STUDY: 09/09/2017 INTERPRETATION: Essentially normal EEG during wakefulness and sleep. There were no potentially epileptogenic abnormalities present in the recording. The background activity contained prominent beta frequency activity. This can be medication-related effects or normal physiologic activity. REPORT: This EEG contains 9 Hz alpha over the posterior head regions. There was prominent beta frequency activity in the background. There was no abnormal activation at rest, during photic stimulation or hyperventilation. The patient became drowsy and fell asleep during the study. There was no abnormal activation during drowsiness, sleep, or during times of arousal. /[id number]/MODL MTDD
== END ==
LOC: FCPNEURO 15:07
PROVIDERS: ATTEND Psychiatry & Neurology Neurology
DX: R25.1 Tremor, unspecified (principal)

== ENCOUNTER → 2017-09-27 | Outpatient (CLI) | payer OTHER | LOC: FIMAGING 10:08 | PROVIDERS: ATTEND Internal Medicine | DX: Z12.31 Encounter for screening mammogram for malignant neoplasm of breast (principal) | CPT/HCPCS: G0202 ==

== ENCOUNTER 2018-04-13 05:35 | Inpatient (IN) | payer OTHER ==
--- NOTE | 2018-04-04 13:58 | GHP ---
[f rep st] PREOP HISTORY AND PHYSICAL DATE OF ADMISSION: 04/13/2018 DATE OF SURGERY: She will be an a.m. admission for surgery on April 13, 2018. PROBLEM: Left hip arthritis. HISTORY OF PRESENT ILLNESS: The patient is a 73-year-old woman admitted for a left total hip arthrop lasty. She first developed pain in her left hip in 2013. She was doing some clamshell exercises whe n the pain started. She has had persistent soreness and progressive pain since then. A year ago, genevieve guillen had a right total knee arthroplasty by Dr. Singleton. She has also had some right-sided lower back trouble. She had a right lower extremity DVT after her total knee replacement. She was on Xarelto for 3 months. She has failed conservative treatment. She is admitted for a left total hip arthropla sty. PAST MEDICAL HISTORY: She is treated for hypertension. She also has peripheral neuropathy. No hist ory of heart disease, hepatitis, MRSA staph infections, sleep apnea, or bleeding disorders. DRUG ALLERGIES: Aleve and penicillin. Aspirin upsets her stomach. Metal allergy: None. Latex all ergy: None. SOCIAL HISTORY: The patient lives with her partner. She does not smoke cigarettes or drink alcohol. She works part-time from home. FAMILY HISTORY: Positive for cancer. PHYSICAL EXAMINATION: GENERAL: She is a thin, healthy-appearing woman. Height 5 feet 6 inches. We ight 130 pounds. BMI 21. EYES: Conjunctivae and sclerae are clear. Pupils are round and reactive. MOUTH: Good oral hygiene. No loose teeth. CHEST: Clear. HEART: Regular rhythm. No murmurs. EXTREMITIES: Pertinent findings are limited to her left hip. She has full hip extension and 100 deg kennedy of flexion. As she flexes the hip, she develops a 20-degree external rotation contracture and h as 20 additional degrees of external rotation and no internal rotation. Abduction 20 degrees. IMAGING: Her films show severe degenerative arthritis in the left hip. She is bone on bone. Modera te degenerative arthritis in the right hip. PLAN: She will undergo a left total hip arthroplasty. The surgery has been described to her, includ ing the risks, complications, expectations, and recovery time. I have discussed with her the risk of dislocation, leg length inequality, infection, and sciatic nerve injury. All her questions have bee n answered, and she consents to surgery. IMPRESSION ON ADMISSION: 1. Left hip severe degenerative arthritis. 2. Right hip moderate degenerative arthritis which is not symptomatic. 3. Treatment for hypertension. 4. Treatment for peripheral neuropathy. 5. Treatment for essential tremor. 6. Treatment for osteoporosis. /[id number]/MODL
[2018-04-13] MEDS ORDERED: FAMOTIDINE 20 MG TAB PO ONE (05:42)
[2018-04-13] MEDS ORDERED: ACETAMINOPHEN 325 MG TAB PO ONE (05:42)
[2018-04-13] MEDS ORDERED: ONDANSETRON 4 MG/2 ML VIAL IVP ONE (05:42)
[2018-04-13] MEDS ORDERED: DEXAMETHASONE 4 MG/ML VIAL IVP ONE (05:42)
[2018-04-13] MEDS ORDERED: LR 1,000 ML IV ONE (05:43)
[2018-04-13] MEDS ORDERED: LIDOCAINE 1% 2 ML INJ ID PRN (05:43)
[2018-04-13] MEDS ORDERED: ROPIVACAINE 0.2% 80 MG, EPINEPHrine 0.2 MG in SYRINGE 0 ML IU ONE (06:00)
[2018-04-13] MEDS ORDERED: TRANEXAMIC ACID 1,000 MG in NS 100 ML IV ONE (06:00)
[2018-04-13] MEDS ORDERED: VANCOMYCIN HCL/NORMAL SALINE 250 ML IV ONE (06:00)
[2018-04-13] MEDS ORDERED: VANCOMYCIN PHARMACY TO DOSE MISC ONE (06:00)
[2018-04-13] MEDS ORDERED: ceFAZolin 1 GM/5 ML SYR ONE (06:49)
--- NOTE | 2018-04-13 06:59 | PDHPUP ---
History & Physical Update H&P update statement: This history and physical update is based on an assessment of the patient which was completed after admission or registration (within 24 hours), but prior to the surgery/procedure. H&P update: H&P reviewed & patient examined
[2018-04-13] MEDS ORDERED: MIDAZOLAM 2 MG/2 ML VIAL IVP ONE (07:03)
--- NOTE | 2018-04-13 07:06 | PDANEPAE ---
ANE History of Present Illness Left EVERARDO ANE Past Medical History - Cardiovascular History Hx Hypertension: No Hx Arrhythmias: No Hx Chest Pain: No Hx Coronary Artery / Peripheral Vascular Disease: No Hx CHF / Valvular Disease: No Hx Palpitations: No - Pulmonary History Hx COPD: No Hx Asthma/Reactive Airway Disease: No Hx Recent Upper Respiratory Infection: No Hx Oxygen in Use at Home: No Hx Sleep Apnea: No Sleep Apnea Screening Result - Last Documented: Negative - Neurologic History Hx Cerebrovascular Accident: No Hx Seizures: No Hx Dementia: No - Endocrine History Hx Diabetes: No Hypothyroid: No Hyperthyroid: No Obesity: no - Renal History Hx Renal Disorders: No - Liver History Hx Hepatic Disorders: No - Neurological & Psychiatric Hx Hx Neurological and Psychiatric Disorders: No Neurological / Psychiatric History Comment: essential tremor. peripheral neuropathy. depression - Cancer History Hx Cancer: Yes Cancer History Comment: SQUAMOUS CELL REMOVED - Congenital Disorder History Hx Congenital Disorders: No - GI History GERD: mild Hx Gastrointestinal Disorders: Yes Gastrointestinal History Comment: GERD. COLON POLYPS - Other Health History Other Health History: NEG - Chronic Pain History Chronic Pain: Yes (KNEES AYDE) - Surgical History Prior Surgeries: AYDE LATERAL RELEASE DEBRIDE. L KNEE CHONDRO PLASTY. R KNEE MENISECTOMY. L OSTEOTOMY ARM. TONSILLECTOMY ANE Review of Systems Review of systems is: negative Review of Systems: - Exercise capacity METS (RN): 4 METS ANE Patient History - Allergies Allergies/Adverse Reactions: strawberry [[place]] Allergy (Severe, Verified 04/06/18 16:01) Anaphylaxis amoxicillin [Amoxicillin] Allergy (Intermediate, Verified 04/06/18 16:01) Hives naproxen sodium [From Aleve] Allergy (Intermediate, Verified 04/06/18 16:01) Hives Penicillins Allergy (Intermediate, Verified 04/06/18 16:01) Hives - Home Medications Home Medications: Cholecalciferol Vit D3 [Vitamin D3 2000 units tab (OTC)] 2,000 units PO DAILY [Last Taken 04/03/18] Pregabalin [Lyrica 50mg (*)] 50 mg PO DAILY 02/22/17 [Last Taken 04/13/18 05:00] Pregabalin [Lyrica 50mg (*)] 100 mg PO HS 02/22/17 [Last Taken 04/12/18 22:00] Ascorbic Acid [Vitamin C 500 mg (*)] 500 mg PO DAILY 05/05/17 [Last Taken ] Acetaminophen [Tylenol 325mg (*)] 325 mg PO DAILY PRN 03/31/18 [Last Taken 04/12 22:00] C/E/Zn/Cu/OM3/DHA/EPA/LUT/ZEAX [Preservision Areds 2 Softgel] 1 each PO DAILY [Last Taken 04/03/18] Ferrous Sulfate [Ferrous Sulf 325 MG (*)] 325 mg PO DAILY 03/31/18 [Last Taken 04/12/18 08:00] Herbals/Supplements -Info Only 1 ea PO DAILY 03/31/18 [Last Taken 04/03/18] Propranolol HCl [Propranolol HCl ER] 60 mg PO DAILY 03/31/18 [Last Taken 05:00] Propylene Glycol/Peg 400 [Systane 0.3-0.4% Eye Drops] 1 drop OP DAILY PRN [Last Taken 04/12/18 08:00] Ranitidine HCl [Zantac 75] 75 - 150 mg PO DAILY PRN 03/31/18 [Last Taken 05:00] Sennosides/Docusate Sodium [Senokot-S] 1 tab PO DAILY 03/31/18 [Last Taken 04/12 22:00] Spironolactone [Aldactone 25 MG (*)] 25 mg PO DAILY 03/31/18 [Last Taken 08:00] Teriparatide [Forteo] 2.4 ml SQ DAILY 03/31/18 [Last Taken 04/13/18 05:00] - NPO status NPO Since - Liquids (Date): 04/12/18 NPO Since - Liquids (Time): 22:00 NPO Since - Solids (Date): 04/12/18 NPO Since - Solids (Time): 21:00 - Anes Hx Anes Hx: no prior problems - Smoking Hx Smoking Status: Former smoker Marijuana use: Yes - Alcohol Use Alcohol Use: None - Family Anes Hx Family Anes Hx: none Family Hx Anesthesia Complications: NEG ANE Labs/Vital Signs - Vital Signs Blood Pressure: 121/66 Heart Rate: 58 Respiratory Rate: 16 O2 Sat (%): 95 Height: 167.64 cm Weight: 58.967 kg ANE Physical Exam - Airway Neck exam: FROM Mouth exam: normal dental/mouth exam - Pulmonary Pulmonary: no respiratory distress, no rales or rhonchi - Cardiovascular Cardiovascular: regular rate and rhythym, no murmur, rub, or gallop - ASA Status ASA Status: II ANE Anesthesia Plan Anesthesia Plan: spinal Total IV Anesthesia: Yes
[2018-04-13] MEDS ORDERED: MIDAZOLAM 2 MG/2 ML VIAL ONE (07:08)
[2018-04-13] MEDS ORDERED: BUPIVACAINE 0.5% 30 ML SDV ONE (07:10)
[2018-04-13] MEDS ORDERED: PROPOFOL/EMULSION 500 MG/50 ML BOTTLE IV ONE (07:12)
[2018-04-13] MEDS ORDERED: POVIDONE-IODINE 20 ML in SODIUM CL IRRIG SOLUTION 500 ML IRR ONE (08:00)
[2018-04-13] MEDS ORDERED: ACETAMINOPHEN 500 MG TAB PO PRN (08:56)
[2018-04-13] MEDS ORDERED: oxyCODONE IR 5 MG TAB PO PRN (08:56)
[2018-04-13] MEDS ORDERED: ONDANSETRON 4 MG/2 ML VIAL IVP PRN ×2 (08:56→09:20)
[2018-04-13] MEDS ORDERED: fentaNYL 100 MCG/2 ML INJ IVP PRN (08:56)
[2018-04-13] MEDS ORDERED: DIAZEPAM 5 MG/ML 1 ML SYR IVP PRN (08:56)
[2018-04-13] MEDS ORDERED: NALOXONE HCL 0.4 MG/ML INJ IVP PRN (08:56)
--- NOTE | 2018-04-13 08:59 | POSTANESTH ---
Post Anesthetic Evaluation Cardiovascular Status: Similar to Pre-Op Cond Respiratory Status: Tx Decrease in SpO2 Level of Consciousness/Mental Status: Can Participate in Eval Pain Control: Adequate, Prn Tx Ordered Nausea/Vomiting Control: Adequate, Prn Tx Ordered Complications Possibly Related to Anesthesia: None Noted (Pt requires 6 to 8 liters O2 Severe pulmonary HTN)
--- NOTE | 2018-04-13 09:13 | POSTOPPROG ---
Post Op Note Date of Operation: 04/13/18 Surgeon: Corky Mckeon 2Nd Grade Teacher: Naveed/Sara Anesthesiologist: Joe Anesthesia: IV Sedation, Spinal Post-op Diagnosis: right hip arthritis Procedure: R EVERARDO Inf/Abcess present in the surg proc area at time of surgery?: No EBL: 100-500
[2018-04-13] MEDS ORDERED: Propylene Glycol/Peg 400 [Systane 0.3-0.4% Eye Drops] 1 DROP OP PRN (09:19)
[2018-04-13] MEDS ORDERED: TEMAZEPAM 15 MG CAP PO PRN (09:20)
[2018-04-13] MEDS ORDERED: NS 500 ML IV PRN (09:20)
[2018-04-13] MEDS ORDERED: diphenhydrAMINE 25 MG CAP PO PRN (09:20)
[2018-04-13] MEDS ORDERED: CYCLOBENZAPRINE 10 MG TAB PO PRN (09:20)
[2018-04-13] MEDS ORDERED: BISACODYL 10 MG SUPP PR PRN (09:20)
[2018-04-13] MEDS ORDERED: PROMETHAZINE HCL 25 MG SUPPR PR PRN (09:20)
[2018-04-13] MEDS ORDERED: MAGNESIUM HYDROXIDE 30 ML UDCUP PO PRN (09:20)
[2018-04-13] MEDS ORDERED: METOCLOPRAMIDE 10 MG/2 ML VIAL IVP PRN (09:20)
[2018-04-13] MEDS ORDERED: LACTULOSE 20 GM/30 ML UDCUP PO PRN (09:20)
[2018-04-13] MEDS ORDERED: ONDANSETRON DISINTEGRATING 4 MG TAB PO PRN (09:20)
[2018-04-13] MEDS ORDERED: POLYETHYLENE GLYCOL 3350 17 GM PKT PO PRN (09:20)
[2018-04-13] MEDS ORDERED: DIPHENOXYLATE/ATROPINE LOMOTIL 1 TAB PO PRN (09:20)
[2018-04-13] MEDS ORDERED: PROMETHAZINE HCL 25 MG/ML INJ IVP PRN (09:20)
[2018-04-13] MEDS ORDERED: LR 1,000 ML IV SCH (09:30)
[2018-04-13] MEDS ORDERED: oxyCODONE IR 5 MG TAB ONE (09:33)
--- NOTE | 2018-04-13 11:40 | GOP ---
[f rep st] OPERATIVE REPORT DATE OF OPERATION: 04/13/2018 SURGEON: Corky Mckeon MD MASTICATOR: Waqar Lucio and Diogenes Ruiz. ANESTHESIA: A combination of Marcaine, spinal, and IV sedation. ANESTHESIOLOGIST: Saniya Diaz MD. PREOPERATIVE DIAGNOSIS: Left hip severe degenerative arthritis. POSTOPERATIVE DIAGNOSIS: Left hip severe degenerative arthritis. PROCEDURE PERFORMED: 04/13/2018, a left total hip arthroplasty, ceramic femoral head on highly cross -link polyethylene cup liner. FINDINGS: DESCRIPTION OF PROCEDURE: The patient was given 1 g of vancomycin preoperatively within 60 minutes o f surgery. She also received IV tranexamic acid at a dose of 1000 mg. She was placed on the operati ng room table and given spinal anesthesia with Marcaine by Dr. Diaz. She was then placed supine an d given IV sedation. A Sun catheter was not used. She was rolled to the right lateral decubitus p osition. The position was secured with the pegboard table attachment. An axillary roll was used, an d all pressure points were carefully padded. I was careful to lock her pelvis in a rigid vertical po sition. Her perineum was isolated with plastic adhesive drapes. The left hip and left lower extremi ty were prepped with ChloraPrep. They were draped free using sterile sheets, stockinette and Ioban p lastmiguel drape. The World Health Organization time-out was performed to verify the correct surgical side and site and the correct patient identity. The [place] time-out was also performed. I made a 4-5 inch straight oblique posterolateral hip skin incision. Subcutaneous tissues were sharp ly divided, and hemostasis was obtained using electrocautery. She was thin and had a very thin layer of subcutaneous fat. The fascia art was identified and split along the axis of its fibers. I then curved posteriorly and proximally, and split the fascia of the gluteus liz and bluntly split the muscle fibers in line with their orientation. The Charnley self-retaining retractor was inserted. Her sciatic nerve was located, partially exposed, and protected throughout the procedure. The precision farming coordinator al rotators and the posterior hip capsule were divided as separate layers at the base of the femoral neck, tagged, and reflected posteriorly. A smooth 8-inch Steinmann pin was inserted vertically into the ilium, superior to the acetabulum. An 8-inch drill bit was inserted vertically into the greater trochanter and parallel to the first pin. The distance between the 2 was measured for leg length ref erence. Her femoral head was dislocated posteriorly. Severe degenerative changes were present on th e femoral head. Her femoral neck was osteotomized at the appropriate level and inclination. I was careful to preserve all the posterior capsule and most of the anterior capsule. The remnant of her damaged labrum was excised. She had chondrocalcinosis evidence in the labrum. I prepared the femur first. This allowed me to water restoration technician the amount of natural femoral neck anteversion. This, in turn, allowed me to later determine the correct amount of cup anteversion. She had approx imately 10 degrees of natural femoral neck anteversion which was a little less than usual for a femal e. Her canal was opened laterally with a box chisel. I power reamed with the starter reamer and the n hand broached sequentially up to a size 5. The size 5, Asaf Accolade II broach with the standar d offset was used as a trial stem. I was careful to lateralize adequately. Appropriate retractors were inserted to expose the acetabulum. The acetabulum was reamed sequentiall y up to 53 mm. I selected a 54 mm Asaf titanium trident II cluster hole hemispherical shell. Thi s was tapped securely into place in the proper degree of inclination anteversion. I used the transve rse acetabular ligament and other acetabular bony landmarks to help me properly orient the cup. I di d not think supplemental screw fixation was necessary. I performed a series of trial reductions to d etermine length and stability. I took an intraoperative cross-table AP pelvis x-ray. This demonstra baldo proper sizing and position of the components and appropriate leg length. I concluded that the si ze 5 stem with a standard offset with a +2.5 mm neck and a 36 mm head with a 10 degree lip trial line r gave me the proper combination of appropriate length and good anterior and posterior stability. The 10 degree lip Eldena X3 highly cross-linked polyethylene liner was inserted and tapped securely into place. The Eldena Accolade II stem in standard offset in size 5 was inserted press-fit and was a good tight fit. I did 1 final trial reduction and confirmed that the +2.5 mm neck length with a 3 6 mm head was the proper combination. The Eldena Biolox Delta ceramic head with a +2.5 mm neck jai th and a 36 mm diameter was tapped securely onto the clean trunnion. The acetabulum was irrigated, c leaned, and the hip was reduced 1 final time. She had excellent anterior and posterior stability and appropriate length. 40 mL of the joint anesthetic cocktail were injected into the capsule, the deep musculature, and the subcutaneous tissues around the skin edges. The joint was thoroughly irrigated 1 final time with a d ilute Betadine solution. Her sciatic nerve was reinspected and looked unharmed. The external rotato rs and the posterior hip capsule were repaired in separate layers with #2 FiberWire sutures through d rill holes in the greater trochanter. This provided a strong posterior capsular and external rotator repair. The fascia art was closed with 2 iyrwzy-pi-egmbu #2 FiberWire sutures followed by a runnin g #2 barbed Ethicon Stratafix PDO suture. Subcutaneous tissues were closed with a running 0 barbed E thicon Stratafix Monoderm suture. The skin was closed with a running 3-0 barbed Ethicon Stratafix Mo noderm subcuticular suture. The skin edges were reapproximated and sealed with Dermabond glue. The wound was covered with a large Mediplex waterproof surgical dressing. The Mepilex sacral dressing wa s also applied. A long-leg BALDO stocking and SCD were applied to her left lower extremity. She wore a stocking and SC D on the opposite leg during the procedure. She was awakened from anesthesia and rolled to the supin e position on her [facility]. She was taken to PACU in satisfactory condition. There were no r ecognized intraoperative complications. Estimated blood loss was about 300 mL. The sponge and needl e count were correct on 2 occasions. I used a Asaf Titanium Trident II hemispherical press-fit cluster hole acetabular shell with an ou tside diameter of 54 mm. The liner was a Eldena X3 10-degree lipped highly cross-linked liner with an inside diameter of 36 mm. The femoral component was a standard offset Accolade II stem in a size 5 and press-fit. The femoral head was a Asaf Biolox Delta ceramic head with a +2.5 mm neck length and a 36 mm outside diameter. Waqar Lucio and Diogenes Ruiz acted as surgical assistants. Their assistance was a medical necess ity for safe completion of the procedure. Copy requested to: Lisa Wells MD /[id number]/MODL
[2018-04-13] MEDS: ACETAMINOPHEN 325 MG TAB PO SCH ×3 (12:30→23:59)
[2018-04-13] MEDS: oxyCODONE IR 5 MG TAB PO PRN ×3 (12:31→20:10)
--- NOTE | 2018-04-13 14:47 | PDMN ---
Medical Necessity Medical necessity: [facility] IP only surgery; cpt 24011 L EVERARDO
[2018-04-13] MEDS: traMADol 50 MG TAB PO PRN (17:45)
[2018-04-13] MEDS: FAMOTIDINE 20 MG TAB PO SCH (20:05)
[2018-04-13] MEDS: SENNOSIDES/DOCUSATE SODIUM TAB PO SCH (20:05)
[2018-04-13] MEDS ORDERED: PREGABALIN 50 MG CAP PO SCH (21:00)
[2018-04-14] MEDS: oxyCODONE IR 5 MG TAB PO PRN ×2 (01:59→06:07)
[2018-04-14] MEDS: ACETAMINOPHEN 325 MG TAB PO SCH ×2 (06:06→11:52)
--- NOTE | 2018-04-14 07:27 | SOAPPROG ---
SOAP Progress Note Assessment/Plan: Assessment: Awake and alert. Moderate pain. Last night she was experiencing postural hypotension. Her blood pressure is stable this morning. Her dressing is dry. Sciatic nerve intact. Postoperative H&H are satisfactory. Postop films look excellent. Plan: Continue physical therapy today. Encourage fluids. Probable discharged later this afternoon. She will go to outpatient physical therapy next week in [place]. She has a history of previous pulmonary embolism. She will be on Lovenox for 28 days. 04/14/18 07:26 Objective: Vital Signs Temp Pulse Resp BP Pulse Ox 37.4 C 74 16 126/64 H 94 04/14/18 04:00 04/14/18 04:00 04/14/18 04:00 04/14/18 04:00 04/14/18 04:00 Laboratory Results 04/14/18 04:30 04/14/18 04:30 04/13/18 04/14/18 04/15/18 05:59 05:59 05:59 Intake Total 4117 Output Total 2450 Balance 1667 ICD10 Worksheet Patient Problems: Problems Problem Status Onset Osteoarthritis of left hip Acute Arthritis of knee Acute
--- NOTE | 2018-04-14 08:10 | GDS ---
[f rep st] DISCHARGE SUMMARY PREOPERATIVE DIAGNOSIS: Left hip severe degenerative arthritis. POSTOPERATIVE DIAGNOSIS: Left hip severe degenerative arthritis. OPERATION PERFORMED: April 13, 2018, a left total hip arthroplasty, ceramic femoral head on highly microfilm camera operator ss-linked polyethylene cup liner. POSTOPERATIVE COMPLICATIONS: None. CONDITION ON DISCHARGE: Improved. HOSPITAL COURSE: The patient was admitted to the hospital on the morning of surgery. Her admission hemoglobin and hematocrit 12.5 and 35.7. Electrolytes, BUN and creatinine were normal. The same day , under combination of Marcaine, spinal, and IV sedation, she underwent a left total hip arthroplasty . Postoperatively, she was treated with multimodal DVT prophylaxis, including Lovenox. She has a hi story of previous thromboembolic disease. On the evening of surgery she had several episodes of post ural hypotension. On the first postoperative day, her hemoglobin and hematocrit were 10.9 and 30.4. By the time of discharge, she was afebrile and was walking with a walker. DISPOSITION: The patient is discharged to her home. She will go to outpatient physical therapy next week in [place]. She may progress to full weightbearing on the left as tolerated. Continue Loven ox for 28 days. Use an abduction pillow in bed for 3 weeks. Continue BALDO stockings for 1 week. She has prescriptions for oxycodone and tramadol for pain. She may also use Tylenol. She did not recei ve Celebrex because of her allergy to Aleve and because of a history of stomach bleeding disorder. I will see her back in the office on 05/05/2018. If there are any problems, she is to call me at the office. Copy requested to: Elan Wells MD /[id number]/MODL
[2018-04-14] MEDS: FAMOTIDINE 20 MG TAB PO SCH (08:29)
[2018-04-14] MEDS: SENNOSIDES/DOCUSATE SODIUM TAB PO SCH (08:30)
[2018-04-14] MEDS ORDERED: Teriparatide [Forteo] 2.4 ML SQ SCH (09:00)
[2018-04-14] MEDS ORDERED: PREGABALIN 50 MG CAP PO SCH (09:00)
[2018-04-14] MEDS ORDERED: PROPRANOLOL SR 60 MG CAP PO SCH (09:00)
[2018-04-14] MEDS ORDERED: FERROUS SULFATE 325 MG TAB PO SCH (09:00)
[2018-04-14] MEDS ORDERED: ENOXAPARIN 40 MG/0.4 ML SYR SC SCH (09:00)
[2018-04-14] MEDS ORDERED: SPIRONOLACTONE 25 MG TAB PO SCH (09:00)
--- NOTE | 2018-04-14 11:46 | ASMTCMCOM ---
CM Note CM Note Notes: Pt medically stable for d/c with outpatient PT. OT/PT rec home. No CM d/c needs identified. Date Signed: 04/14/2018 11:45 AM Electronically Signed By:CHIKI Mendoza
[2018-04-14 12:09] VITALS: BP 141/72
[2018-04-14] MEDS: traMADol 50 MG TAB PO PRN (12:41)
== END 2018-04-14 13:33 | disposition home or self-care (01) | DRG 470 ==
LOC: F3N 05:35
PROVIDERS: ADMIT Orthopaedic Surgery; ATTEND Orthopaedic Surgery
PROC: 0SRB04Z Replacement of Left Hip Joint with Ceramic on Polyethylene Synthetic Substitute, Open Approach (ICD-10-PCS; principal; 2018-04-13 07:15)
DX: M16.12 Unilateral primary osteoarthritis, left hip (principal); D64.9 Anemia, unspecified; I10 Essential (primary) hypertension; G62.9 Polyneuropathy, unspecified; G25.0 Essential tremor; M81.0 Age-related osteoporosis without current pathological fracture; Z86.718 Personal history of other venous thrombosis and embolism
CPT/HCPCS: 97116-GP; 97161-GP; 97165-GO; G8978-GP-CJ; G8979-GP-CI; G8980-GP-CI; G8987-GO-CI; G8988-GO-CI; G8989-GO-CI; J0171; J1100; J1650; J2250; J2704; J2795; J3370

== ENCOUNTER → 2018-07-20 | Outpatient (CLI) | payer OTHER | LOC: CIMAGING 15:08 | PROVIDERS: ATTEND Internal Medicine | DX: N28.9 Disorder of kidney and ureter, unspecified (principal) | CPT/HCPCS: 76770-PO ==

== ENCOUNTER → 2018-08-01 | Outpatient (CLI) | payer OTHER | LOC: FIMAGING 11:54 → EDSTATUS 11:55 | PROVIDERS: ATTEND Neurological Surgery | DX: M51.36 Other intervertebral disc degeneration, lumbar region (principal); M89.38 Hypertrophy of bone, other site ==

== ENCOUNTER → 2018-08-15 | Outpatient (CLI) | payer OTHER | LOC: FIMAGING 13:52 | PROVIDERS: ATTEND Internal Medicine Endocrinology, Diabetes & Metabolism | DX: Z13.820 Encounter for screening for osteoporosis (principal); M81.0 Age-related osteoporosis without current pathological fracture; Z78.0 Asymptomatic menopausal state; Z96.642 Presence of left artificial hip joint ==

== ENCOUNTER → 2018-10-20 | Outpatient (CLI) | payer OTHER | LOC: FIMAGING 11:36 | PROVIDERS: ATTEND Internal Medicine | DX: N28.1 Cyst of kidney, acquired (principal) ==

== ENCOUNTER 2018-12-05 19:58 | Emergency (ER) | payer OTHER ==
--- NOTE | 2018-12-05 20:30 | EDPHY ---
HPI/HX/ROS/PE/MDM Narrative: CHIEF COMPLAINT: Upper right chest pain. HISTORY OF PRESENT ILLNESS: This patient is a pleasant 73 year old female complaining of chest pain ongoing for three weeks. The discomfort is localized to the upper right side and she initially thought this was a muscle strain. It is is fairly constant, though she notices it primarily with deep inspiration or if she is lying on her left side. Denies dizziness or lightheadedness. Denies shortness of breath. The pain does not seem positional. She does not notice any change with eating. No recent cough, cold. No history of heart or lung problems. No recent chest trauma. Today , her primary care provider recommended she come in for an appointment due to history of DVT following a knee surgery one year ago. NATURAL RESOURCE SPECIALIST completed a d-dimer, which was positive. Patient was referred to the ED for CTA/PE rule-out. She denies any recent prolonged travel or other periods of sedentary behavior. No rash. No fever, chills, chest pain, shortness of breath, palpitations, vomiting , diarrhea, urinary complaints, headache, lightheadedness. REVIEW OF SYSTEMS: A comprehensive 10 system review of systems is otherwise negative aside from elements mentioned in the history of present illness and medical decision making. PAST MEDICAL HISTORY: GERD. Knee replacement. SOCIAL HISTORY: Nonsmoker. No alcohol, marijuana, or illicit drug use. VITAL SIGNS: Reviewed by me GENERAL: Well-developed, well-nourished, resting comfortably in no respiratory distress. HEENT: Atraumatic. Eyes: No icterus, no injection. Mouth: moist mucous membranes. No erythema or lesions. Neck: supple with no adenopathy. LUNGS: Clear to auscultation bilaterally, no wheezes, rhonchi or rales. CARDIAC: Regular rate and rhythm, no rubs, murmurs or gallops. ABDOMEN: Soft, nontender, nondistended, bowel sounds normal. BACK: No CVA tenderness. EXTREMITIES: No trauma. No edema. Range of motion is normal throughout. NEURO: Alert and oriented, grossly nonfocal. SKIN: Warm and dry, no definitive vesicles or other rash noted. PSYCHIATRIC: Normal mentation, no agitation. Portions of this note were transcribed by a medical appointment clerk. I personally performed a history, physical exam, medical decision making, and confirmed accuracy of information the transcribed note. ED Course: 73 y/o female presents for PE rule-out / evaluation of right upper chest pain. Elevated d-dimer at her PCP's office earlier today. On exam, she has mild discomfort with palpation to RUQ. No tenderness over the upper right chest. Plan for labs including CBC, chemistries, troponin, liver, lipase. Plan for CTA chest to r/o PE as requested. CT scan reported to me as showing no pulmonary embolism. No acute findings. Discussed with the patient. She tells me she is scheduled to have an ultrasound of right upper quadrant. We discussed Tylenol for pain. We discussed ibuprofen switch she cannot take. Patient was provided with a prescription for prednisone to use for potential pleurisy. MDM: After history and physical examination, the differential for chest pain was considered, including but not limited to, pulmonary embolus, chest wall pain, pleural inflammation, referred pain, GI causes and pulmonary infectious causes. - Data Points Imaging Results: Imaging Impressions Chest/Thorax CTA 12/05/18 20:30 Impression: 1. No evidence of pulmonary embolus using CT protocol. 2. Mild aneurysmal dilatation of the ascending aorta measuring 4 cm. 3. Peripherally enhancing lesion right lobe of the thyroid. If indicated, consider correlation with thyroid ultrasound. Findings discussed with Cony Main MD at 21:38 hour, 12/05/2018. Laboratory Results: Laboratory Results 12/05/18 20:13 12/05/18 20:13 12/05/18 12/05/18 12/05/18 20:18 20:13 20:13 WBC 7.08 10^3/uL 10^3/uL (3.80-9.50) RBC 4.02 10^6/uL L 10^6/uL (4.18-5.33) Hgb 13.1 g/dL g/dL (12.6-16.3) Hct 38.0 % % (38.0-47.0) MCV 94.5 fL fL (81.5-99.8) MCH 32.6 pg pg (27.9-34.1) MCHC 34.5 g/dL g/dL (32.4-36.7) RDW 11.9 % % (11.5-15.2) Plt Count 265 10^3/uL 10^3/uL (150-400) MPV 9.0 fL fL (8.7-11.7) Neut % (Auto) 48.6 % % (39.3-74.2) Lymph % (Auto) 38.0 % % (15.0-45.0) [place] % (Auto) 10.2 % % (4.5-13.0) Eos % (Auto) 2.4 % % (0.6-7.6) Baso % (Auto) 0.4 % % (0.3-1.7) Nucleat RBC Rel Count 0.0 % % (0.0-0.2) Absolute Neuts (auto) 3.44 10^3/uL 10^3/uL (1.70-6.50) Absolute Lymphs (auto) 2.69 10^3/uL 10^3/uL (1.00-3.00) Absolute Monos (auto) 0.72 10^3/uL 10^3/uL (0.30-0.80) Absolute Eos (auto) 0.17 10^3/uL 10^3/uL (0.03-0.40) Absolute Basos (auto) 0.03 10^3/uL 10^3/uL (0.02-0.10) Absolute Nucleated RBC 0.00 10^3/uL 10^3/uL (0-0.01) Immature Gran % 0.4 % % (0.0-1.1) Immature Gran # 0.03 10^3/uL 10^3/uL (0.00-0.10) Sodium 132 mEq/L L mEq/L (135-145) Potassium 3.9 mEq/L mEq/L (3.5-5.2) Chloride 104 mEq/L mEq/L (97-110) Carbon Dioxide 22 mEq/l mEq/l (22-31) Anion Gap 6 mEq/L mEq/L (6-14) BUN 19 mg/dL mg/dL (7-23) Creatinine 0.9 mg/dL mg/dL (0.6-1.0) Estimated GFR > 60 Glucose 108 mg/dL H mg/dL (70-100) Calcium 9.3 mg/dL mg/dL (8.5-10.4) Total Bilirubin 0.3 mg/dL mg/dL (0.1-1.4) Conjugated Bilirubin 0.3 mg/dL mg/dL (0.0-0.5) Unconjugated Bilirubin 0.0 mg/dL mg/dL (0.0-1.1) AST 30 IU/L IU/L (14-46) ALT 25 IU/L IU/L (9-52) Alkaline Phosphatase 85 IU/L IU/L (38-126) POC Troponin I 0.00 ng/mL ng/mL (0.00-0.08) Total Protein 6.9 g/dL g/dL (6.3-8.2) Albumin 4.1 g/dL g/dL (3.5-5.0) Lipase 146 IU/L IU/L (23-300) Point of Care Test Results: Chemistry 12/05/18 20:18 POC Troponin I 0.00 ng/mL ng/mL (0.00-0.08) General Time Seen by Provider: 12/05/18 20:19 Initial Vital Signs: Initial Vital Signs Temperature (C) 36.6 C 12/05/18 20:00 Heart Rate 59 L 12/05/18 20:00 Respiratory Rate 16 12/05/18 20:00 Blood Pressure 147/81 H 12/05/18 20:00 O2 Sat (%) 94 12/05/18 20:00 O2 Delivery Mode Room Air Allergies/Adverse Reactions: strawberry [[place]olt] Allergy (Severe, Verified 12/05/18 20:13) Anaphylaxis amoxicillin [Amoxicillin] Allergy (Intermediate, Verified 12/05/18 20:13) Hives naproxen sodium [From Aleve] Allergy (Intermediate, Verified 12/05/18 20:13) Hives Penicillins Allergy (Intermediate, Verified 12/05/18 20:13) Hives hornet venom Allergy (Verified 12/05/18 20:13) Home Medications: Medication Instructions Recorded Pregabalin [Lyrica 50mg (*)] 50 mg PO DAILY 02/22/17 Pregabalin [Lyrica 50mg (*)] 100 mg PO HS 02/22/17 Propranolol HCl [Propranolol HCl 60 mg PO DAILY 03/31/18 ER] Propylene Glycol/Peg 400 [SYSTANE 1 drop OP DAILY PRN 03/31/18 0.3-0.4% EYE DROPS] Lamictal 12/05/18 predniSONE 20 mg PO DAILY 7 Days tab 12/05/18 Departure - Departure Disposition: Home, Routine, Self-Care Clinical Impression: Chest pain Qualifiers: Chest pain type: chest pain on breathing Qualified Code(s): R07.1 - Chest pain on breathing; R07.81 - Pleurodynia Condition: Good Instructions: Chest Pain (ED), Thoracic Pain (ED) Additional Instructions: There is no pulmonary embolism on your evaluation. There is no pneumonia, or pulmonary findings to explain your pain. Please take regular doses of Tylenol or ibuprofen as needed for your pain. Follow up with your primary care physician for further evaluation. Consider taking Prilosec or Protonix if you feel that this is related to heartburn, consider applying lidocaine patch if you feel that this is more musculoskeletal. Referrals: Terese Friend MD [Primary Care Provider] - As per Instructions Prescriptions: predniSONE 20 mg PO DAILY 7 Days tab Report Scribed for: Cony Main Report Scribed by: Myrna Conte Date of Report: 12/05/18 Time of Report: 20:31
[2018-12-05 20:37] LABS: PLATELET COUNT 265 10^3/uL (150-400)
[2018-12-05] MEDS ORDERED: IOPAMIDOL (ISOVUE 370) 100 ML BTL IV ONE (20:45)
--- NOTE | 2018-12-05 20:48 | CPEKG ---
Test Reason : OPEN Blood Pressure : / mmHG Vent. Rate : 060 BPM Atrial Rate : 059 BPM P-R Int : 212 ms QRS Dur : 092 ms QT Int : 425 ms P-R-T Axes : 026 -03 058 degrees QTc Int : 425 ms Sinus rhythm Borderline prolonged [place] interval Confirmed by Cony Main ([id number]) on 12/05/2018 8:48:00 PM Referred By: Confirmed By:Cony Main
[2018-12-05 22:13] VITALS: BP 127/84
== END 2018-12-05 22:11 | disposition home or self-care (01) ==
DX: R07.81 Pleurodynia (principal); I70.0 Atherosclerosis of aorta
CPT/HCPCS: 71275; 93005; 99285; Q9967; 84484-ER

== ENCOUNTER → 2018-12-06 | Outpatient (CLI) | payer OTHER ==
[~2018-12-06] MED LIST: GADOBUTROL 10 ML VIAL IVP ONE; IOPAMIDOL (ISOVUE 370) 100 ML BTL IV ONE; LIDOCAINE 1% 300 MG/30 ML SDV ONE; MIDAZOLAM 2 MG/2 ML VIAL ONE; fentaNYL 100 MCG/2 ML INJ ONE
== END ==
LOC: FIMAGING 12:34
PROVIDERS: ATTEND Internal Medicine
DX: N28.9 Disorder of kidney and ureter, unspecified (principal); K57.30 Diverticulosis of large intestine without perforation or abscess without bleeding; I10 Essential (primary) hypertension
CPT/HCPCS: 74183; A9585; J1644; J2250; J3010; Q9967

== ENCOUNTER → 2018-12-14 | Outpatient (CLI) | payer OTHER | LOC: FIMAGING 08:40 | PROVIDERS: ATTEND Internal Medicine | DX: E04.1 Nontoxic single thyroid nodule (principal) ==

== ENCOUNTER → 2018-12-16 | Outpatient (CLI) | payer OTHER ==
[~2018-12-16] MED LIST changes: -GADOBUTROL 10 ML VIAL IVP ONE; -IOPAMIDOL (ISOVUE 370) 100 ML BTL IV ONE; -MIDAZOLAM 2 MG/2 ML VIAL ONE; -fentaNYL 100 MCG/2 ML INJ ONE
== END ==
LOC: FIMAGING 07:51
PROVIDERS: ATTEND Internal Medicine
PROC: 0GBH3ZX Excision of Right Thyroid Gland Lobe, Percutaneous Approach, Diagnostic (ICD-10-PCS; principal; 2018-12-16)
DX: E04.1 Nontoxic single thyroid nodule (principal); R10.11 Right upper quadrant pain; R94.6 Abnormal results of thyroid function studies

== ENCOUNTER → 2018-12-20 | Outpatient (CLI) | payer OTHER | LOC: FIMAGING 10:31 | PROVIDERS: ATTEND Internal Medicine | DX: K82.8 Other specified diseases of gallbladder (principal) | CPT/HCPCS: 78227; A9537 ==

== ENCOUNTER 2019-01-19 10:24 | Day surgery (SDC) | payer OTHER ==
--- NOTE | 2019-01-16 17:28 | GHP ---
[f rep st] PREOP HISTORY AND PHYSICAL DATE OF ADMISSION: 01/19/2019 DATE OF SURGERY: 01/19/2019 PRE-PROCEDURE DIAGNOSIS: Biliary dyskinesia. HISTORY OF PRESENT ILLNESS: A 73-year-old woman who presented to the clinic complaining of right upp er quadrant abdominal pain. The pain developed approximately 2 months ago. She reports that the fay n radiates to her right shoulder and back. The pain is worse after eating high fat foods and improve s after she has followed a low-fat diet. She reports that the pain is now constant and is flared wit h deep breathing or diaphragmatic movement. She does report having diarrhea after eating rich foods. She does deny nausea, vomiting, fevers, chills. She had a HIDA scan performed on 12/20/2018, which showed no evidence of acute or chronic cholecystitis or of common bile duct obstruction. Her gallbl adder ejection fraction was 19%, consistent with biliary dyskinesia. PAST MEDICAL HISTORY: Esophageal reflux, history of DVT, hypertension, lumbar spinal stenosis, osteo porosis, peripheral neuropathy. PAST SURGICAL HISTORY: Bilateral arthroscopic knee surgery, eye surgery, left hip replacement, tonsi llectomy. FAMILY HISTORY: Significant for diabetes, coronary artery disease, stroke, and multiple types of can cers. ALLERGIES: Aleve, bee stings, penicillin, strawberries. REVIEW OF SYSTEMS: No fevers or chills. PHYSICAL EXAMINATION: GENERAL: Well-developed, well-nourished woman in no acute distress. HEENT: Normocephalic, atraumatic. No hearing deficits. Pupils equal and round. No scleral icterus. Mucou s membranes are moist. NECK: Trachea midline. RESPIRATORY: No increased work of breathing. Clear to auscultation bilaterally. CARDIOVASCULAR: Regular rate and rhythm. ABDOMEN: Soft, nondistende d, nontender. No rebound or guarding. Negative Grullon sign. PSYCH: Mood and affect normal. NEURO : Grossly intact. IMPRESSION AND PLAN: A 73-year-old woman with biliary dyskinesia identified on HIDA scan. We discus sed laparoscopic cholecystectomy. We discussed risks of surgery, including but not limited to heart attack, stroke, blood clots or . We discussed risk of infection, superficial or deep bleeding, damage to surrounding structures including bowel, blood vessels, or damage to the common bile duct. She understands the risks and would like to proceed. The patient was additionally seen and evaluated by Dr. Beatris Boss. /[id number]/MODL
[2019-01-19] MEDS ORDERED: ceFAZolin 2 GM/DEXTROSE 100 ML IV ONE (10:37)
[2019-01-19] MEDS ORDERED: LIDOCAINE 1% 2 ML INJ ID PRN (10:38)
[2019-01-19] MEDS ORDERED: LR 1,000 ML IV ONE (10:38)
[2019-01-19] MEDS ORDERED: BUPIVACAINE 0.5% 30 ML SDV ONE (10:46)
--- NOTE | 2019-01-19 11:23 | PDHPUP ---
History & Physical Update H&P update statement: This history and physical update is based on an assessment of the patient which was completed after admission or registration (within 24 hours), but prior to the surgery/procedure. H&P update: H&P reviewed & patient examined, no change in patient's condition since H&P completed
[2019-01-19] MEDS ORDERED: PROPOFOL/EMULSION 500 MG/50 ML BOTTLE IV ONE (11:45)
[2019-01-19] MEDS ORDERED: fentaNYL 100 MCG/2 ML INJ ONE (11:45)
[2019-01-19] MEDS ORDERED: ALBUTEROL 3 ML DEYVIAL IH PRN ×2 (12:00→13:14)
[2019-01-19] MEDS ORDERED: HYDROCODONE/APAP 5/325 TAB PO PRN ×2 (12:00→13:14)
[2019-01-19] MEDS ORDERED: DEXAMETHASONE 4 MG/ML VIAL IVP PRN ×2 (12:00→13:14)
[2019-01-19] MEDS ORDERED: fentaNYL 100 MCG/2 ML INJ IVP PRN ×2 (12:00→13:14)
[2019-01-19] MEDS ORDERED: NALOXONE HCL 0.4 MG/ML INJ IVP PRN ×2 (12:00→13:14)
[2019-01-19] MEDS ORDERED: LR 500 ML IV PRN ×2 (12:00→13:14)
[2019-01-19] MEDS ORDERED: ONDANSETRON 4 MG/2 ML VIAL IVP PRN ×2 (12:00→13:14)
--- NOTE | 2019-01-19 12:00 | PDANEPAE ---
ANE Past Medical History - Cardiovascular History Hx Hypertension: No Hx Arrhythmias: No Hx Chest Pain: No Hx Coronary Artery / Peripheral Vascular Disease: No Hx CHF / Valvular Disease: No Hx Palpitations: No - Pulmonary History Hx COPD: No Hx Asthma/Reactive Airway Disease: No Hx Recent Upper Respiratory Infection: No Hx Oxygen in Use at Home: No Hx Sleep Apnea: No Sleep Apnea Screening Result - Last Documented: Negative - Neurologic History Hx Cerebrovascular Accident: No Hx Seizures: No Hx Dementia: No - Endocrine History Hx Diabetes: No - Renal History Hx Renal Disorders: No - Liver History Hx Hepatic Disorders: No - Neurological & Psychiatric Hx Hx Neurological and Psychiatric Disorders: No Neurological / Psychiatric History Comment: essential tremor. peripheral neuropathy. depression - Cancer History Hx Cancer: Yes Cancer History Comment: SQUAMOUS CELL REMOVED - Congenital Disorder History Hx Congenital Disorders: No - GI History Hx Gastrointestinal Disorders: Yes Gastrointestinal History Comment: GERD. COLON POLYPS - Other Health History Other Health History: none - Chronic Pain History Chronic Pain: No - Surgical History Prior Surgeries: AYDE LATERAL RELEASE DEBRIDE. L KNEE CHONDRO PLASTY. R KNEE MENISECTOMY. L OSTEOTOMY ARM. TONSILLECTOMY. TKA AND EVERARDO ANE Review of Systems Review of Systems: - Exercise capacity METS (RN): 4 METS ANE Patient History - Allergies Allergies/Adverse Reactions: strawberry [[place]] Allergy (Severe, Verified 01/18/19 12:02) Anaphylaxis amoxicillin [Amoxicillin] Allergy (Intermediate, Verified 01/18/19 12:02) Hives naproxen sodium [From Aleve] Allergy (Intermediate, Verified 01/18/19 12:02) Hives Penicillins Allergy (Intermediate, Verified 01/18/19 12:02) Hives hornet venom Allergy (Verified 01/18/19 12:02) - Home Medications Home Medications: Pregabalin [Lyrica 50mg (*)] 02/22/17 [Last Taken 01/19/19 06:00] Propranolol HCl [Propranolol HCl ER] 03/31/18 [Last Taken 01/19/19 06:00] Propylene Glycol/Peg 400 [SYSTANE 0.3-0.4% EYE DROPS] 03/31/18 [Last Taken 04/02] Prolia 01/18/19 [Last Taken 08/05/18] Spironolactone 01/18/19 [Last Taken 01/18/19] - NPO status NPO Since - Liquids (Date): 01/19/19 NPO Since - Liquids (Time): 08:00 NPO Since - Solids (Date): 01/18/19 NPO Since - Solids (Time): 20:00 - Smoking Hx Smoking Status: Former smoker - Family Anes Hx Family Hx Anesthesia Complications: NONE ANE Labs/Vital Signs - Labs Result Diagrams: 01/19/19 11:20 - Vital Signs Blood Pressure: 123/65 Heart Rate: 60 Respiratory Rate: 16 O2 Sat (%): 95 Height: 167.64 cm Weight: 58.967 kg ANE Physical Exam - Airway Neck exam: FROM Mallampati Score: Class 1 Mouth exam: normal dental/mouth exam - Pulmonary Pulmonary: no respiratory distress, no rales or rhonchi, clear to auscultation - Cardiovascular Cardiovascular: regular rate and rhythym, no murmur, rub, or gallop - ASA Status ASA Status: II ANE Anesthesia Plan Anesthesia Plan: general endotracheal anesthesia
[2019-01-19] MEDS ORDERED: ALBUMIN 5% 250 ML BOTTLE IV ONE (12:02)
[2019-01-19] MEDS ORDERED: ONDANSETRON 4 MG/2 ML VIAL ONE (12:12)
[2019-01-19] MEDS ORDERED: SUGAMMADEX SODIUM 200 MG/2 ML VIAL IVP ONE (12:12)
[2019-01-19] MEDS ORDERED: LIDOCAINE 2% 5 ML SDV ONE (12:12)
[2019-01-19] MEDS ORDERED: ROCURONIUM 50 MG/5 ML VIAL ONE (12:12)
[2019-01-19] MEDS ORDERED: ePHEDrine SULFATE 25 MG/5 ML SYR ONE (12:38)
--- NOTE | 2019-01-19 12:45 | POSTOPPROG ---
Post Op Note Date of Operation: 01/19/19 Surgeon: Beatris Boss Anesthesiologist: monica Anesthesia: GET(General Endotracheal) Pre-op Diagnosis: biliary dyskinesia Post-op Diagnosis: same Indication: 74 yo with biliary dyskinesia Procedure: lap liberty Findings: no unusual Inf/Abcess present in the surg proc area at time of surgery?: No EBL: Minimal Specimen(s): gb
--- NOTE | 2019-01-19 13:15 | POSTANESTH ---
Post Anesthetic Evaluation Cardiovascular Status: Normal, Stable, Similar to Pre-Op Cond Respiratory Status: Normal, Stable, Similar to Pre-op Cond. Level of Consciousness/Mental Status: Mildly Sleepy, Arousable Pain Control: Adequate, Prn Tx Ordered Nausea/Vomiting Control: Adequate, Prn Tx Ordered Complications Possibly Related to Anesthesia: None Noted
[2019-01-19 14:32] VITALS: BP 148/81
--- NOTE | 2019-01-19 19:13 | GOP ---
[f rep st] OPERATIVE REPORT DATE OF OPERATION: 01/19/2019 SURGEON: Beatris Boss MD ANESTHESIA: General. ANESTHESIOLOGIST: Cleo De Jesus MD. PREOPERATIVE DIAGNOSIS: Biliary dyskinesia. POSTOPERATIVE DIAGNOSIS: Biliary dyskinesia. PROCEDURE PERFORMED: Laparoscopic cholecystectomy. FINDINGS: No unusual findings. SPECIMENS: Gallbladder. ESTIMATED BLOOD LOSS: 10 cc. INDICATIONS: The patient is a 74-year-old woman who was found to have biliary dyskinesia. DESCRIPTION OF PROCEDURE: the Patient was brought into the operating room and placed supine on the t able. General anesthesia was administered. Her abdomen was prepped and draped in the usual sterile fa shion. I infiltrated all sites with 0.5% Marcaine prior to making incisions. I made an incision at he r umbilicus. I elevated it. I inserted the Veress needle. It passed the hanging drop test. Her abdome n insufflated easily to a pressure of 15 mmHg. I placed a 5 mm camera with a trocar at this site. The re were no injuries from Veress needle placement. Under direct vision, I placed a 10 mm subxiphoid tr ocar and two 5 mm trocars along the right costal margin. I lifted the gallbladder cephalad and latera lly. I excised some omentum from the gallbladder. I exposed the triangle of [place]. I skeletonized the cystic artery and cystic duct so that they were the only 2 structures directly entering the gallblad marty. they were each singly clipped toward the gallbladder, doubly clipped distally and transected wit h scissors. The gallbladder removed with electrocautery. It was placed in an EndoCatch bag and retrie manolo via the 10 mm trocar. Hemostasis was achieved on the liver bed. Clips in satisfactory position. T he ports were removed and the abdomen allowed to desufflate. The fascia at the 10 mm trocar site was closed with 0 Vicryl, skin closed with 4-0 Monocryl. Dermabond applied. She was awakened in the opera ting room, extubated, and transferred to the PACU in stable condition. /[id number]/MODL
== END 2019-01-19 14:25 | disposition home or self-care (01) ==
LOC: FSGY 10:24
PROVIDERS: ATTEND Surgery
PROC: 0FT44ZZ Resection of Gallbladder, Percutaneous Endoscopic Approach (ICD-10-PCS; principal; 2019-01-19 12:00)
DX: K82.8 Other specified diseases of gallbladder (principal)
CPT/HCPCS: J0690; J2405; J2704; J3010; P9041

== ENCOUNTER 2019-01-23 20:15 | Emergency (ER) | payer OTHER ==
--- NOTE | 2019-01-23 20:53 | EDPHY ---
H & P Stated Complaint: Leg cramps - is afraid potassium is low Time Seen by Provider: 01/23/19 20:29 HPI/ROS: This patient complains of generalized fatigue and muscle cramps in her feet, toes and legs reminiscent of symptoms she had hypokalemia after prior general anesthesia for knee replacement in 2017. Her recent history is notable for being postop day 4 from uncomplicated lap choly by Dr. Boss at [facility]. She was taking [place] for postop pain until today reporting that she only had minimal discomfort at the incision sites and no belly pain at this point. However she again felt very tired and fatigued today along with the cramping noted above. She notes no exacerbating factors for the symptoms. She tried eating a candy bar hoping to gain more energy but did not feel improved. She is accompanied by her female partner who drove her here by private vehicle for evaluation of the symptoms. ROS: Constitutional: No high fevers or chills HEENT: No complaints pulmonary: No cough shortness of breath. No pleuritic pain Cardiovascular: No chest pain. No heart palpitations. She has chronic edema to the right leg since total knee replacement but no change in her baseline mild edema. At the moment she denies any calf pain only spasm and muscle cramp of her left 3rd and 4th toes. GI: She had loose stools twice a day she attributes to stool softener she is taking while taking [place]. She stopped the nor: Stool softener today and only had 1 bowel movement that was still slightly soft but more formed. : No urinary complaints integumentary: No complaints 10 point review of symptoms is performed and otherwise negative with exception of pertinent positives and negatives listed in HPI and ROS Source: Patient Exam Limitations: No limitations - Personal History Current Tetanus/Diphtheria Vaccine: Yes Current Tetanus Diphtheria and Acellular Pertussis (TDAP): Yes Tetanus Vaccine Date: < 10 years - Medical/Surgical History Hx Asthma: No Hx Chronic Respiratory Disease: No Hx Diabetes: No Hx Cardiac Disease: No Hx Renal Disease: No Hx Cirrhosis: No Hx Alcoholism: Yes Hx HIV/AIDS: No Hx Splenectomy or Spleen Trauma: No Other PMH: GERD, COLON POLYPS, BILAT KNEE SURGERY, LEFT ARM SURGERY, DVT, HTN, PERIP NEUROPATHY, ESSENTIAL TREMOR, FAINTING AFTER RT TKA, OSTEOPOROSIS, left hip replacement, right knee replacement - Social History Smoking Status: Former smoker Constitutional: Initial Vital Signs Temperature (C) 36.6 C 01/23/19 20:28 Heart Rate 60 01/23/19 20:28 Respiratory Rate 18 01/23/19 20:28 Blood Pressure 143/79 H 01/23/19 20:28 O2 Sat (%) 98 01/23/19 20:28 O2 Delivery Mode Room Air Allergies/Adverse Reactions: strawberry [[place]] Allergy (Severe, Verified 01/18/19 12:02) Anaphylaxis amoxicillin [Amoxicillin] Allergy (Intermediate, Verified 01/18/19 12:02) Hives naproxen sodium [From Aleve] Allergy (Intermediate, Verified 01/18/19 12:02) Hives Penicillins Allergy (Intermediate, Verified 01/18/19 12:02) Hives hornet venom Allergy (Verified 01/18/19 12:02) Home Medications: Medication Instructions Recorded Pregabalin [Lyrica 50mg (*)] 02/22/17 Propranolol HCl [Propranolol HCl 03/31/18 ER] Propylene Glycol/Peg 400 [SYSTANE 03/31/18 0.3-0.4% EYE DROPS] Prolia 01/18/19 Spironolactone 01/18/19 Hydrocodone/Acetaminophen [[place] 1 each PO Q4H PRN #20 tablet 01/19/19 5-325 Tablet] Medical Decision Making - Diagnostics EKG Interpretation: 12 lead EKG performed at 8:52 p.m. Reveals sinus rhythm at 55 Intervals: Normal throughout [place]: P of 19, QRS of -12, T of [address] segments: Normal throughout Overall assessment sinus rhythm with low voltage in precordial leads. Otherwise normal. ED Course/Re-evaluation: IV normal saline bolus. Discussion: Patient presents with fatigue and mild muscle cramping postop that concerns her for potential hyponatremia since she had had hyponatremia after general anesthesia 1 prior occasion. We ruled out hypokalemia. I think that her fatigue is a combination of healing postop, mild postop normocytic anemia and mild hyponatremia. I counseled patient regarding this. We ruled out UTI, she has a benign belly exam after her laparoscopic surgery. I also considered myocardial ischemia but without significant risk factors are normal EKG did not think she is having myocardial ischemia as the source of her fatigue. No red flag findings today other than the mild abnormalities noted above. She will follow up with primary care physician and with her surgeon. I recommend that she start supplemental iron for mild anemia and increase her sodium intake. She understands need to return emergency department should she develop any worsening symptoms despite treatment plan - Data Points Laboratory Results: POC CBC reveals a normocytic anemia with hematocrit of 34, normal white cell count normal platelets. Differential is normal exception of slightly elevated eosinophils. Basic metabolic panel is normal with exception of mild hyponatremia with a sodium of 132. Her POC urine dip was normal exception of trace leukocytes. This was sent to our hospital lab for a urine microscopic and there are no significant findings on the urine microscopic. Microbiology Results: MICROBIOLOGY 01/23/19 21:50 Urine,Clean Catch Urine Culture - Preliminary Two [place] Types Medications Given: Discontinued Medications Sodium Chloride (Ns) 1,000 mls @ 0 mls/hr IV ONCE ONE; Wide Open PRN Reason: Protocol Stop: 01/23/19 21:19 Last Admin: 01/23/19 21:21 Dose: 1,000 mls Point of Care Test Results: CBC CBC Collection Date 01/23/19 CBC Collection Time 20:54 WBC 7.4 RBC 3.65 HGB 12.0 HCT 34.6 PLT 261 Neut # 4.08 Neut 56.4 LYMPH # 1.87 LYMPH 25.8 MCV 94.8 Chemistry 01/23/19 21:01 POC Sodium 132 mEq/L L mEq/L (135-145) POC Potassium 3.9 mEq/L mEq/L (3.3-5.0) POC Chloride 94.0 mEq/L L mEq/L (97-110) POC Total CO2 24 mEq/L mEq/L (22-31) POC BUN 12 mg/dL mg/dL (7-23) POC Creatinine 0.9 mg/dL mg/dL (0.6-1.0) POC Glucose 86 mg/dL mg/dL (70-100) POC Calcium 9.5 mg/dL mg/dL (8.5-10.4) Urine Dip Collection Date 01/23/19 Collection Time 20:40 Specific [place] (1.002-1.030) 1.010 PH (5.0-7.5) 7.0 Leukocytes (Negative) Trace Nitrites (Negative) Negative Protein (Negative) Negative Glucose (Negative) Negative Ketones (Negative) Negative Urobilnogen (0.2-1.0 EU) 0.2 Bilirubin (Negative) Negative Blood (Negative) Negative Departure - Departure Disposition: Home, Routine, Self-Care Clinical Impression: Normocytic anemia, Hyponatremia, Fatigue, Muscle cramping Condition: Good Instructions: Hyponatremia (ED), Anemia (ED) Additional Instructions: Diagnoses: 1. Normocytic Anemia 2. Mild Hyponatremia 3. Fatigue due to 1 & 2 4. Muscle Cramping Plan: Considering iron supplement for her mild anemia that is likely due to your postoperative state. Increase her sodium intake Follow up with primary care physician and her surgeon Return for any significant worsening despite treatment plan. Referrals: Terese Friend MD [Primary Care Provider] - As per Instructions
[2019-01-23] MEDS ORDERED: NS 1,000 ML IV ONE (21:18)
[2019-01-23 22:28] VITALS: BP 147/75
--- NOTE | 2019-01-23 23:14 | CPEKG ---
Test Reason : OPEN Blood Pressure : / mmHG Vent. Rate : 055 BPM Atrial Rate : 055 BPM P-R Int : 209 ms QRS Dur : 090 ms QT Int : 433 ms P-R-T Axes : 019 -12 032 degrees QTc Int : 415 ms Sinus rhythm Low voltage, precordial leads Confirmed by Clayton Chong ([id number]) on 01/23/2019 11:13:56 PM Referred By: CLAYTON CHONG Confirmed By:Clayton Chong
== END 2019-01-23 22:34 | disposition home or self-care (01) ==
LOC: CED 20:15
DX: D64.9 Anemia, unspecified (principal); E87.1 Hypo-osmolality and hyponatremia; R53.83 Other fatigue; R25.2 Cramp and spasm; E86.9 Volume depletion, unspecified
CPT/HCPCS: 80048-ER; 96360-ER; 99284-ER

== ENCOUNTER → 2019-01-27 | Outpatient (CLI) | payer OTHER | LOC: FIMAGING 15:05 | PROVIDERS: ATTEND Surgery | DX: R10.11 Right upper quadrant pain (principal) ==